=== PATIENT | male | born 1935 | race Caucasian/White ===

== ENCOUNTER 2020-05-16 07:58 | Outpatient (CLI) | payer MEDICARE, SELFPAY ==
--- NOTE | ~2020-05-16 | NM_ITS ---
EXAMINATION: NM hepatobiliary wo pharm DATE: 05/16/2020 13:10 CDT INDICATION: Abdominal pain TECHNIQUE: 4.5 millicuries Choletec was administered intravenously. Scintigraphic images of the abdo men were obtained for one hour. As the gallbladder was not seen at one hour, four hour delayed image s were obtained. Gallbladder ejection fraction could not be calculated by the technologist since the gallbladder was not seen by a one hour and cholecystokinin was not administered. FINDINGS: There is homogeneous tracer uptake by the liver. No radiotracer is identified in the common duct or small bowel by one hour. As the gallbladder was not seen by one hour and therefore cholecyst okinin was not administered, the gallbladder ejection fraction could not be calculated. There is visu alization of the gallbladder and small bowel at 4 hours. IMPRESSION: 1. Delayed visualization of the gallbladder at four hours after initial radiotracer administration, consistent with chronic cholecystitis. Correlate with patient's symptoms. 2. As the gallbladder was not seen by one hour and therefore cholecystokinin was not administered, t he gallbladder ejection fraction could not be calculated. Reviewed, dictated and finalized at location B. IMPRESSION: 1. Delayed visualization of the gallbladder at four hours after initial radiot racer administration, consistent with chronic cholecystitis. Correlate with pa tient's symptoms. 2. As the gallbladder was not seen by one hour and therefore cholecystokinin w as not administered, the gallbladder ejection fraction could not be calculated.
== END 2020-05-16 07:59 | disposition home or self-care (01) ==
LOC: ANHIMG 08:11
PROVIDERS: PCP Family Medicine; Visit Provider Family Medicine
DX: K21.9 Gastro-esophageal reflux disease without esophagitis (principal); R10.9 Unspecified abdominal pain
CPT/HCPCS: 78226; A9537

== ENCOUNTER 2020-05-31 01:05 | Outpatient (CLI) | payer MEDICARE, SELFPAY ==
[2020-05-31 18:04] LABS: SARS-CoV-2 RNA PCR Negative
== END 2020-05-31 01:06 | disposition home or self-care (01) ==
LOC: ANHCOVIDDT 01:05
PROVIDERS: PCP Family Medicine; Visit Provider Surgery
DX: Z01.812 Encounter for preprocedural laboratory examination (principal); Z20.828 Contact with and (suspected) exposure to other viral communicable diseases
CPT/HCPCS: 87635; C9803; U0003

== ENCOUNTER 2020-06-04 01:53 | Day surgery (SDC) | payer MEDICARE, SELFPAY ==
[2020-05-29 14:18] VITALS: BMI 26.4
--- NOTE | 2020-06-03 13:25 | WPDANESEPPF ---
Anes - Initial Pre Proc Eval Procedure: Operation Date: 06/04/20 10:30 Proposed Procedures p Laparoscopic Cholecystectomy - Lion Espinosa MD Date/Time: 06/03/20 13:25 Surgeon: Lion Espinosa MD Pre Op Diagnosis: Chronic Cholelithiasis Patient Data Age: 84 Gender: M Height: 1.65 m Weight: 72 kg Allergies Allergy/AdvReac Type Severity Reaction Status Date / Time Penicillins Allergy Mild Unknown Verified 06/04/20 07:45 Home Medications Medication Instructions Recorded Confirmed Type aspirin 81 mg tablet,delayed 81 mg PO DAILY 05/19/20 05/29/20 History release canagliflozin 100 mg tablet 100 mg PO DAILY 05/19/20 05/29/20 History coenzyme Q10 10 mg capsule 10 mg PO ONCE 05/19/20 05/29/20 History esomeprazole magnesium 20 mg 20 mg PO DAILY 05/19/20 05/29/20 History capsule,delayed release ezetimibe 10 mg-simvastatin 20 mg 1 tablet PO DAILY 05/19/20 05/29/20 History tablet glipizide 10 mg tablet 10 mg PO DAILY 05/19/20 05/29/20 History multivitamin,ku-rstu-hqdhbjyl 1 tablet PO DAILY 05/19/20 05/29/20 History oxybutynin chloride 5 mg tablet 10 mg PO DAILY 05/19/20 05/29/20 History quinapril 20 mg tablet 20 mg PO DAILY 05/19/20 05/29/20 History acetaminophen 325 mg PO TID PRN 05/29/20 05/29/20 History ascorbic acid (vitamin C) [Vitamin 1 g PO DAILY 05/29/20 05/29/20 History C] cyanocobalamin (vitamin B-12) 500 mcg PO DAILY 05/29/20 05/29/20 History ergocalciferol (vitamin D2) 1,250 mcg PO WEEKLY 05/29/20 05/29/20 History [Vitamin D2] insulin glargine [Lantus U-100 15 unit SUBCUT DAILY 05/29/20 05/29/20 History Insulin] metformin [Glucophage] 1,000 mg PO BID 05/29/20 05/29/20 History ECG: sr, lad, no acute st/tw changes Patient hx anesthesia problems: none Family hx anesthesia problems: none PMFSH Past Medical History Medical History (Updated 06/04/20 @ 08:44 by Jaron Bowen MD) CHF (congestive heart failure) diastolic Dementia Diabetes High cholesterol History of skin cancer Hypertension Family History Family History Father , age 84 Cerebrovascular accident Diabetes mellitus Mother , age 82 Breast cancer Diabetes mellitus Heart disease Hypertension Gallbladder problem Social History Social History (Updated 05/22/20 @ 09:12 by Zari Dorsey CMA) Alcohol intake: never Living arrangements: jail Additional living arrangements comments: [place] Final PreProcedure Day of Procedure 06/03/20 13:25 Patient weight: overweight Heart: regular rate and rhythm Lungs: clear to auscultation and normal air movement Airway: Mallampati scale class II Neurological: alert and oriented Last oral intake: >/= 8 hours ASA classification: IV Emergent: no Anesthetic plan: proceed Anesthesia type and monitoring: general ETT Informed Consent: The patient's anesthetic plan and its attendant risks and benefits were discussed with the patient/family/POA. Questions were solicited and answers provided to the satisfaction of the patient/family/POA.
[2020-06-04] VITALS (10 sets, daily range): BP systolic 100–117; BP diastolic 47–66; PULSE 96–104; RESP 12–16; TEMP 35.5–36.1; O2SAT 97–100
--- NOTE | 2020-06-04 07:15 | WPDHPUPDATE1 ---
History and Physical Update Update Date/Time: 06/04/20 07:15 History and Physical has been reviewed, including an updated exam of the patient. There are NO changes in the patient's condition. Risks, benefits, and alternatives have been discussed and questions answered. Patient agrees to proceed with procedure.
--- NOTE | 2020-06-04 07:58 | ECG_ITS ---
Measurements Intervals [place] Rate: 95 P: 16 CT: 176 QRS: -38 QRSD: 84 T: 19 QT: 342 QTc: 430 Interpretive Statements SINUS RHYTHM ATRIAL AND VENTRICULAR PREMATURE COMPLEXES LEFT AXIS DEVIATION CANNOT RULE OUT SEPTAL INFARCT, AGE INDETERMINATE CONSIDER INFERIOR INFARCT, AGE INDETERMINATE ABNORMAL ECG Electronically Signed On 06-04-2020 8:48:58 FUNERAL COUNSELOR by Ashu Gonzalez D.O.
[2020-06-04 08:33] LABS: Glucose Point of Care 140 (65-105)
[2020-06-04] MEDS: LACTATED RINGERS 1,000 ML 30 ML IV CONT ×2 (08:38→11:08)
[2020-06-04] MEDS: ACETAMINOPHEN 500 MG TABLET 1000 MG PO (08:40)
[2020-06-04] MEDS: KETOROLAC 15 MG/ML VIAL (*BKC) IV PUSH (08:40)
[2020-06-04 08:45] LABS: Alanine Aminotransferase 121 U/L (4-50); Albumin Level 3.7 g/dL (3.5-5.1); Alkaline Phosphatase 1140 U/L (38-126); Amylase 48 U/L (30-110); Aspartate Amino Transferase 129 U/L (17-59); Bilirubin Direct 1.1 mg/dL (0-0.3); Lipase 32 U/L (23-300)
[2020-06-04] MEDS: CLINDAMYCIN 900 MG/D5W 50 ML 900 MG/50 ML PIGGYBACK 50 MG IVPB (09:28)
[2020-06-04] MEDS: HEMOSTATIC MATRIX (SURGIFLO with THROMBIN) KIT 1 KIT XX (10:21)
[2020-06-04 11:13] LABS: Glucose Point of Care 172 (65-105)
--- NOTE | 2020-06-04 11:20 | PM.PROC ---
Procedure Note - Detailed Date of procedure: 06/04/20 Pre-op diagnosis: Chronic cholecystitis, cholelithiasis Chronic cholecystitis with cholelithiasis Post-op diagnosis: same Procedure performed: Laparoscopic cholecystectomy Description of procedure: The patient was taken to surgery and induced into general anesthesia. The abdomen was prepped and draped. Trocars were placed in the usual fashion using 0.5% Marcaine with epinephrine and applied Medical optical trocars. A 5 millimeter camera was used. The gallbladder was decompressed with a laparoscopic aspirator. The bile was very thick and dark green. It did not suction well with the laparoscopic aspirator. I inserted the suction and this decompressed the gallbladder nicely. The cholecystotomy was closed with a Vicryl endo-loop. The gallbladder was retracted anterosuperiorly. Adhesions to the gallbladder were taken down so that the cholecystohepatic triangle was exposed. There was fatty change of the liver which did not allow very much retraction of the gallbladder. Traction was placed on the infundibulum. I still could not visualize the cholecysto hepatic triangle very well. A 5th trocar was placed in the left mid abdomen. This was another 5 mm port. we used this to retract the omentum, transverse colon, and duodenum posteriorly so that the triangle of Calot could be visualized. The cystic duct and cystic artery were dissected out very clearly. The gallbladder was dissected off the liver at its lower 3rd. Critical view was achieved. We securely clipped and divided the cystic duct and cystic artery. The gallbladder was then further retracted so that the peritoneal attachments to the liver could be divided. At approximately the mcc point to the fundus of the gallbladder, there was no plane between the gallbladder and the liver. With traction, the gallbladder pulled off the liver rather than allowing dissection between the 2. This left some raw liver surface. Unfortunately there was also a superficial vein in the liver that was bleeding as well. Once the gallbladder was freed entirely, it was placed in an Endo-Catch bag and retrieved through the 10 11 epigastric trocar site. The epigastric trocar was then replaced. We reviewed the right upper quadrant. The old blood was suctioned away and some cautery was used. I then used Surgiflo and coated the gallbladder fossa with this hemostatic agent. A Ray-Anne was placed in the abdomen and used to hold pressure. This relieved the oozing from the rest of the gallbladder fossa but there was still some from the area of this small superficial vein. Surgicel was then used and placed over this area. Pressure was held for a full 5 minutes. All looked much better. I then placed a 2nd piece of Surgicel over the gallbladder fossa to cover not only this area but the rest of the raw surface area of the gallbladder fossa. Pressure was again held for nearly 5 minutes. When the Ray-Anne was removed, the gallbladder fossa looked very good with no evidence of bleeding at all. The Surgicel was quite adherent to the liver. I then irrigated and suction the right upper quadrant repeatedly. Nearly 3 L of saline irrigation was used. All looked good with no evidence of bleeding or bile leakage. We evacuated CO2 and removed the trocar sleeves. Skin wounds were closed with subcuticular 4 O Monocryl skin suture. The wounds were dressed with Exofin surgical adhesive. Patient was awakened and taken to recovery in good condition. Sponge and needle counts were correct x2. Anesthesia: GETA and local (0.5% Marcaine with epinephrine) Surgeon: Lion Espinosa MD Electric Clock Mechanic: Nissa WALDROP Estimated blood loss (mL): 100 Drains: No Packing: No Pathology: yes (Gallbladder) Complications: None Condition: stable Disposition: PACU Findings: Chronic inflammation, several gallstones noted. No biliary ductal dilatation, fatty change of the liver as described.
== END 2020-06-04 13:30 | disposition home or self-care (01) ==
PROVIDERS: PCP Family Medicine; Visit Provider Surgery
PROC: 0FT44ZZ Resection of Gallbladder, Percutaneous Endoscopic Approach (ICD-10-PCS; CPT 47562; principal; 2020-06-04 09:30)
DX: K80.10 Calculus of gallbladder with chronic cholecystitis without obstruction (principal); I11.0 Hypertensive heart disease with heart failure; I50.30 Unspecified diastolic (congestive) heart failure; E11.9 Type 2 diabetes mellitus without complications; Z79.4 Long term (current) use of insulin; E78.00 Pure hypercholesterolemia, unspecified; F03.90 Unspecified dementia, unspecified severity, without behavioral disturbance, psychotic disturbance, mood disturbance, and anxiety; Z85.828 Personal history of other malignant neoplasm of skin; Z88.0 Allergy status to penicillin; Z79.52 Long term (current) use of systemic steroids; Z79.899 Other long term (current) drug therapy
CPT/HCPCS: 47562; 36415; 80076; 82150; 83690; 86850; 86900; 86901; 88304; 93005; A9270; C1713; J1885; J2405; J2704; J2710; J3010; J7030; J7120

== ENCOUNTER 2020-06-12 17:28 | Inpatient (IN) | payer MEDICARE, SELFPAY ==
--- NOTE | ~2020-06-12 | XR_ITS ---
XR chest 1V portable DATE: 06/19/2020 11:14 INDICATION: Leukocytosis TECHNIQUE: Portable AP chest on 06/19/2020 at 1114 hours COMPARISON: None FINDINGS: Normal heart size. Aortic arch calcification. No hilar or mediastinal enlargement. No pulmonary infiltrate or consolidation, pleural effusion or pulmonary vascular congestion or pneumo thorax. Diffuse osteopenia. Surgical clips, right upper quadrant, consistent with cholecystectomy. IMPRESSION: No active cardiopulmonary disease Aortic atherosclerosis Diffuse osteopenia Status post cholecystectomy Reviewed, dictated and finalized at location A. FINISH OPERATOR
--- NOTE | ~2020-06-12 | US_ITS ---
EXAMINATION: US renal BI EXAM DATE: 06/16/2020 09:21 INDICATION: Acute kidney insufficiency. TECHNIQUE: Multiple grayscale and Doppler images of the kidneys were obtained (by a technologist who performed the scan) and subsequently reviewed. There is no prior study for comparison. FINDINGS: Right kidney: There is normal contour and echogenicity. It measures 10.1 x 6.0 x 5.2 centimeters. T here are no focal renal lesions identified. There is no hydronephrosis. Left kidney: There is normal contour and echogenicity. It measures 10.0 x 5.2 x 4.7 centimeters. Th ere are no focal renal lesions identified. There is no hydronephrosis. Mild bladder wall trabeculation without focal masslike thickening. IMPRESSION: 1. Sonographically unremarkable kidneys. 2. Mild bladder wall trabeculation. Reviewed, dictated and finalized at location B. ECTOR MISSILE
--- NOTE | ~2020-06-12 | CT_ITS ---
EXAMINATION: CT abdomen pelvis wo con DATE: 06/12/2020 21:21 INDICATION: Jaundice post recent cholecystectomy. COVID positive. TECHNIQUE: Computed tomography (CT) of the abdomen and pelvis was performed with 100 mL Omnipaque-350 intravenous contrast. Automated exposure control and iterative reconstruction technique were employe d. The dose-length product was 887.14 mGy-cm. COMPARISON: None FINDINGS: Scattered mild peripheral opacities and smooth septal line thickening in the bilateral lower lungs. N o pleural effusion. Calcified left lower lobe nodule along with scattered splenic calcified consisten t with old granulomatous disease. Mild cardiomegaly. Atherosclerotic coronary artery calcifications. Aortic valve and mitral annular calcification. No pericardial effusion. Cholecystectomy clips at the pavan hepatis with fluid collection with trace amount of gas at the gallbladder fossa conforming to t he configuration of the gallbladder which is concerning for biloma. No definitive intra or extra hepa tic biliary ductal dilation. Liver is otherwise unremarkable. Pancreas, bilateral adrenal glands and kidneys are normal. Normal retrocecal appendix. No abnormal bowel wall thickening or obstruction. Christopher dder is distended but appears otherwise normal. Mild prostatomegaly. Mild portacaval and periportal l ymphadenopathy which may be reactive. There is calcified atherosclerosis of the aorta and many of the other arteries. Subacute appearing T11 compression fracture with mild anterior vertebral body height loss and some residual lucency along the fracture plane which underlies anterior half of the superio r endplate. Chronic mild anterior wedging at T12. Severe lumbar spondylosis. IMPRESSION: 1. Loculated fluid collection at the gallbladder fossa post reported cholecystectomy which is concern ing for biloma. Differential would include hematoma/seroma or abscess. 2. Bibasilar peripheral predominant airspace opacities also in smooth septal line thickening. Differe ntial would include pulmonary edema, pneumonia, atelectasis or some combination thereof. 3. Likely reactive mild periportal and portacaval lymphadenopathy. 4. Subacute appearing mild T11 compression fracture. Reviewed, dictated and finalized at [facility]. L[facility] PILOT IMPRESSION: 1. Loculated fluid collection at the gallbladder fossa post reported cholecyste ctomy which is concerning for biloma. Differential would include hematoma/serom a or abscess. 2. Bibasilar peripheral predominant airspace opacities also in smooth septal li ne thickening. Differential would include pulmonary edema, pneumonia, atelectas is or some combination thereof. 3. Likely reactive mild periportal and portacaval lymphadenopathy. 4. Subacute appearing mild T11 compression fracture.
--- NOTE | ~2020-06-12 | NM_ITS ---
EXAMINATION: NM hepatobiliary wo pharm EXAM DATE: 06/13/2020 15:02 INDICATION: evaluate for bile leak s/p lap michael 06/04/20. TECHNIQUE: 5.3 mCi Tc-99m mebrofenin (Choletec) was administered intravenously. Scintigraphic images of the abdomen were obtained for one hour. A 6 hour delayed image was then also obtained. Correlatio n is made to CT abdomen from 06/12/2020. The images are available for review under the ERCP accession same date. FINDINGS: There is delayed clearance of radiotracer from the blood pool. There is homogeneous tracer uptake by the liver. At 1 hours time there is no excretion into the common bile duct or small bowel. Patient then went for an ERCP and retrogradely contrast was able to be injected beyond a suspected mi d common bile duct narrowing. On the 6 hour delayed image obtained after the ERCP, abundant small bow el activity demonstrated. No activity within the gallbladder fossa or within the pelvis. No evidence of bile leak. IMPRESSION: Delayed blood pool phase could have been from common bile duct obstruction, which subsequ ently resolved following ERCP performed between initial and delayed imaging. No evidence of bile leak . Reviewed, dictated and finalized at location A. ING MACHINE OPERATOR IMPRESSION: Delayed blood pool phase could have been from common bile duct obst ruction, which subsequently resolved following ERCP performed between initial a nd delayed imaging. No evidence of bile leak.
--- NOTE | ~2020-06-12 | XR_ITS ---
EXAMINATION: XR ERCP EXAM DATE: 06/13/2020 13:15 INDICATION: Papillary stenosis, stones. Evaluate for bile leak. Jaundice. Postoperative fluid collect ion in the gallbladder resection bed. TECHNIQUE: Fluoroscopy used during ERCP. Dose reduction digital pulsed fluoroscopy was used at 4 fra mes per second with DAP 0.46 Gycm2. Correlation made with CT abdomen 06/12/2020 FINDINGS: The ampulla was cannulated and injected. Proximal aspect of the pancreatic duct opacified w as unremarkable. The common bile probably about 8 mm in caliber proximally, and then tapers to about 2 or 3 mm in its mid aspect and then dilates to about 4 mm distally. The ERCP scope is overlying this region, so difficult to evaluate but there is potentially inflammation or mass causing a mid common bile duct narrowing or stricture. There is mild intrahepatic biliary duct dilation. No common bile d uct obstruction or intraluminal filling defect. No contrast extravasation. Cholecystectomy clips. IMPRESSION: Narrowing of the mid common bile duct with mild dilation proximal to this, could be from inflammation or possibly mass. No obstruction or intraluminal filling defects. No extravasation. Reviewed, dictated and finalized at location A. EHOLD APPLIANCES SERVICE TECHNICIAN IMPRESSION: Narrowing of the mid common bile duct with mild dilation proximal t o this, could be from inflammation or possibly mass. No obstruction or intralum inal filling defects. No extravasation.
[2020-06-12 17:41] VITALS: BP 109/61; PULSE 50; RESP 15; TEMP 37.1; O2SAT 97
--- NOTE | 2020-06-12 17:43 | ED.RECABL ---
HPI - Recheck/Abnormal Lab/Rx General Chief Complaint: Recheck/Abnormal Lab/Rx <Jay Philippe MD - Last Filed: 06/15/20 16:02> Stated Complaint: post surgery complications <Jay Philippe MD - Last Filed: 06/15/20 16:02> Time Seen by Provider: 06/12/20 17:31 <Jay Philippe MD - Last Filed: 06/15/20 16:02> History of Present Illness HPI narrative: 85 yo male with h/o cholecystectomy presents to the ED for suspected choledocholithiasis. He had a cholecystectomy on 06/04 since that time he has had increasing jaundice. Outpatient labs reportedly show elevated liver enzymes and alk phos. History severly limited by dementia. custodial indicated that he tested positive for COVID-19 on Tuesday. <Jay Philippe MD - Last Filed: 06/15/20 16:02> Related Data Home Medications: Home Medications Medication Instructions Recorded Confirmed aspirin 81 mg tablet,delayed 81 mg PO DAILY 05/19/20 06/13/20 release canagliflozin 100 mg tablet 100 mg PO DAILY 05/19/20 06/13/20 coenzyme Q10 10 mg capsule 10 mg PO DAILY 05/19/20 06/13/20 esomeprazole magnesium 20 mg 20 mg PO DAILY 05/19/20 06/13/20 capsule,delayed release ezetimibe 10 mg-simvastatin 20 mg 1 tablet PO DAILY 05/19/20 06/13/20 tablet glipizide 10 mg tablet 10 mg PO BID 05/19/20 06/13/20 multivitamin,mq-tqxg-bofrujpr 1 tablet PO DAILY 05/19/20 06/13/20 oxybutynin chloride 5 mg tablet 10 mg PO DAILY 05/19/20 06/13/20 quinapril 20 mg tablet 20 mg PO DAILY 05/19/20 06/13/20 acetaminophen 325 mg PO TID PRN 05/29/20 06/13/20 ascorbic acid (vitamin C) [Vitamin 1 g PO DAILY 05/29/20 06/13/20 C] cyanocobalamin (vitamin B-12) 500 mcg PO DAILY 05/29/20 06/13/20 ergocalciferol (vitamin D2) 1,250 mcg PO WEEKLY 05/29/20 06/13/20 [Vitamin D2] metformin [Glucophage] 1,000 mg PO BID 05/29/20 06/13/20 <Jay Philippe MD - Last Filed: 06/15/20 16:02> Allergies/Adverse Reactions: Allergies Allergy/AdvReac Type Severity Reaction Status Date / Time Penicillins Allergy Mild Unknown Verified 06/13/20 12:11 <Jay Philippe MD - Last Filed: 06/15/20 16:02> Review of Systems Review of Systems: ROS unobtainable: Yes unobtainable due to mental status <Jay Philippe MD - Last Filed: 06/15/20 16:02> PMFSH Past Medical History Medical History: Medical History CHF (congestive heart failure) diastolic Dementia Diabetes High cholesterol History of skin cancer Hypertension <Jay Philippe MD - Last Filed: 06/15/20 16:02> Surgical History Surgical History: Surgical History Hx of cholecystectomy <Jay Philippe MD - Last Filed: 06/15/20 16:02> Family History Family History: Family History Father , age 84 Cerebrovascular accident Diabetes mellitus Mother , age 82 Breast cancer Diabetes mellitus Heart disease Hypertension Gallbladder problem <Jay Philippe MD - Last Filed: 06/15/20 16:02> Social History Social History: Social History Smoking status: Never smoker Alcohol intake: former Substance use: never Additional living arrangements comments: [place] Gender identity (if verbalized by the patient): Male Spiritual care concerns: No <Jay Philippe MD - Last Filed: 06/15/20 16:02> Exam Const: General: no acute distress and alert <Jay Philippe MD - Last Filed: 06/15/20 16:02> Nutritional Appearance: well nourished <Jay Philippe MD - Last Filed: 06/15/20 16:02> HENMT: Head: normal to inspection <Jay Philippe MD - Last Filed: 06/15/20 16:02> Eyes: Conjunctivae: conjunctival abnormality bilateral conjunctival icterus <Jay Philippe MD - Last Filed: 06/15/20 16:02>
[2020-06-12 17:59] VITALS: O2SAT 99
--- NOTE | 2020-06-12 18:37 | PC.NURSE ---
ok to call daughter jayden [phone] any time of day or night with info. she is pt's poa. he has dementia
[2020-06-12 18:41] LABS: Basophils Absolute Auto 0.1 K/mm3 (0.0-0.1); Basophils Percent Auto 0.9 % (0.2-1.2); Eosinophils Absolute Auto 0.3 K/mm3 (0-0.3); Eosinophils Percent Auto 1.8 % (0-4.4); Hematocrit 30.7 % (42.0-52.0); Hemoglobin 10.6 g/dL (14.0-18.0); Immature Granulocyte Absolute 0.23 K/mm3 (0.00-0.031); Immature Granulocyte Percent A 1.7 % (0-0.5); Lymphocytes Absolute Auto 1.56 K/mm3 (0.9-3.2); Lymphocytes Percent Auto 11.4 % (18.3-44.2); Mean Corpuscular HGB Conc 34.5 g/dl (32-36); Mean Corpuscular Hemoglobin 29.3 pg (26-34); Mean Corpuscular Volume 84.8 fl (80-100); Mean Platelet Volume 10.4 fl (7.4-10.4); Monocytes Absolute Auto 0.9 K/mm3 (0.1-0.6); Monocytes Percent Auto 6.9 % (2.6-8.5); Neutrophils Absolute Auto 10.6 K/mm3 (1.3-6.7); Neutrophils Percent Auto 77.3 % (45.5-73.1); Platelet Count Result 317 k/mm3 (150-375); Red Blood Count 3.62 M/mm3 (4.6-6.20); Red Cell Distribution Width 15.9 % (11.5-14.5); White Blood Count 13.7 K/mm3 (4.5-10.0)
[2020-06-12 19:42] VITALS: BP 100/64; PULSE 108; RESP 13; O2SAT 99
[2020-06-12 19:55] LABS: INR 1.3; Prothrombin Time 16.3 Seconds (11.1-14.7)
[2020-06-12 19:56] LABS: Alanine Aminotransferase 238 U/L (4-50); Albumin Level 3.5 g/dL (3.5-5.1); Alkaline Phosphatase 1332 U/L (38-126); Anion Gap 14 mmol/L (8-16); Aspartate Amino Transferase 346 U/L (17-59); Bilirubin Direct 2.6 mg/dL (0-0.3); Blood Urea Nitrogen 47 mg/dL (9-20); Carbon Dioxide 17 mmol/L (22-30); Chloride 106 mmol/L (98-107); Estimated CRCL calculation 15 ml/min; Estimated Glomerular Filt Rate 17; Glucose 43 mg/dL (75-110); Lipase 34 U/L (23-300); Partial Thromboplastin Time 33.1 SECONDS (22.3-36.8); Potassium 3.7 mmol/L (3.4-5.0); Sodium 137 mmol/L (137-145)
[2020-06-12] MEDS: SODIUM CHLORIDE 0.9% IV 1,000 ML 999 ML IV CONT (20:38)
[2020-06-12 20:40] VITALS: BP 113/69; PULSE 98; RESP 16; O2SAT 99
[2020-06-12 20:51] LABS: Glucose Point of Care 34 (65-105)
[2020-06-12] MEDS: DEXTROSE 50% 25 GM/50 ML SYRINGE IV PUSH ×2 (20:55→20:56)
--- NOTE | 2020-06-12 21:45 | PM.CNGS ---
Assessment and Plan Assessment and plan (1) Jaundice: Code(s): R17 - Unspecified jaundice Status: Acute Assessment and Plan: will start c CT, will need further imaging of biliary tree to r/o stones vs leak, will get GI consultation, will need abx, NPO for now (2) COVID-19: Code(s): U07.1 - COVID-19 Status: Acute Assessment and Plan: supportive care (3) CHF (congestive heart failure): Code(s): I50.9 - Heart failure, unspecified Status: Acute Assessment and Plan: mgmt per primary (4) Diabetes: Code(s): E11.9 - Type 2 diabetes mellitus without complications Status: Acute Assessment and Plan: mgmt per primary (5) Hypertension: Code(s): I10 - Essential (primary) hypertension Status: Acute Assessment and Plan: mgmt per primary History of Present Illness Consult details Consult date: 06/12/20 Reason for consult: other (jaundice) Requesting physician: Jay Philippe MD Narrative: Pt is a 85 y/o M c multiple med issues presenting c jaundice. Pt had cholecystectomy on 06/04. Pt reports he has not really had any abdominal pain but noticed worsening jaundice. Pt reports he has had poor appetite since surgery. Pt c mild bloating, nausea. Pt is a poor historian. Review of Systems Review of Systems: ROS unobtainable: Yes unobtainable due to medical condition and unobtainable due to mental status PMFSH Past Medical History Medical History CHF (congestive heart failure) diastolic Dementia Diabetes High cholesterol History of skin cancer Hypertension Surgical History Surgical History Hx of cholecystectomy Family History Family History Father , age 84 Cerebrovascular accident Diabetes mellitus Mother , age 82 Breast cancer Diabetes mellitus Heart disease Hypertension Gallbladder problem Social History Social History Alcohol intake: never Additional living arrangements comments: [place] Gender identity (if verbalized by the patient): Male Meds Home Medications and Allergies Home Medications Medication Instructions Recorded Confirmed Type aspirin 81 mg tablet,delayed 81 mg PO DAILY 05/19/20 05/29/20 History release canagliflozin 100 mg tablet 100 mg PO DAILY 05/19/20 05/29/20 History coenzyme Q10 10 mg capsule 10 mg PO ONCE 05/19/20 05/29/20 History esomeprazole magnesium 20 mg 20 mg PO DAILY 05/19/20 05/29/20 History capsule,delayed release ezetimibe 10 mg-simvastatin 20 mg 1 tablet PO DAILY 05/19/20 05/29/20 History tablet glipizide 10 mg tablet 10 mg PO DAILY 05/19/20 05/29/20 History multivitamin,su-oggj-sfrhhxdp 1 tablet PO DAILY 05/19/20 05/29/20 History oxybutynin chloride 5 mg tablet 10 mg PO DAILY 05/19/20 05/29/20 History quinapril 20 mg tablet 20 mg PO DAILY 05/19/20 05/29/20 History Lantus U-100 Insulin 15 unit SUBCUT DAILY 05/29/20 05/29/20 History acetaminophen 325 mg PO TID PRN 05/29/20 05/29/20 History ascorbic acid (vitamin C) [Vitamin 1 g PO DAILY 05/29/20 05/29/20 History C] cyanocobalamin (vitamin B-12) 500 mcg PO DAILY 05/29/20 05/29/20 History ergocalciferol (vitamin D2) 1,250 mcg PO WEEKLY 05/29/20 05/29/20 History [Vitamin D2] metformin [Glucophage] 1,000 mg PO BID 05/29/20 05/29/20 History ibuprofen 600 mg PO Q6H PRN #14 tablet 06/04/20 Rx Allergies Allergy/AdvReac Type Severity Reaction Status Date / Time Penicillins Allergy Mild Unknown Verified 06/04/20 07:45 Vital Signs Vital Signs - 24 hr 06/12/20 17:41 06/12/20 17:59 06/12/20 19:42 Temperature 37.1 C Pulse Rate 50 L 108 H Respiratory Rate 15 13 Blood Pressure 109/61 100/64 Pulse Oximetry 97 99 99 06/12/20 20:40 Temperature
[2020-06-12 22:08] LABS: Glucose Point of Care 210 (65-105)
--- NOTE | 2020-06-12 22:40 | PM.IMHP ---
H&P: HPI History of Present Illness Date/Time: 06/12/20 22:40 Chief complaint: acute renal failure/biloma/jaundice Narrative: This is an unfortunate 85-year-old diabetic male whom we have been asked to admit to the hospital by the general surgery service for a likely surgical complication of a bile leak. the patient just underwent a laparoscopic cholecystectomy 8 days ago and since then he has had increased jaundice. The patient denies any significant pain or discomfort but does report decreased p.o. intake. He has had elevated liver enzymes. The patient is known to have tested positive for COVID-19 approximately 3 days ago. He was evaluated in the emergency room this evening for his worsening jaundice and CT abdomen pelvis demonstrated a loculated fluid collection at the gallbladder fossa post reported cholecystectomy which is concerning for biloma. ER provider has consulted General surgery Dr. Beckman who has asked that we admit the patient for them because the patient appears to be in acute renal failure. On my encounter with the patient tonight he denies any fevers, chills, shortness of breath, cough, chest pain, nausea, vomiting, abdominal pain, dysuria, hematuria, diarrhea, or rectal bleeding. ER provider has consulted gastroenterology for possible ERCP. Review of Systems Review of Systems: All systems reviewed & are unremarkable except as noted in HPI and below PMFSH Past Medical History Medical History CHF (congestive heart failure) diastolic Dementia Diabetes High cholesterol History of skin cancer Hypertension Surgical History Surgical History Hx of cholecystectomy Family History Family History Father , age 84 Cerebrovascular accident Diabetes mellitus Mother , age 82 Breast cancer Diabetes mellitus Heart disease Hypertension Gallbladder problem Social History Social History Smoking status: Never smoker Alcohol intake: former Substance use: never Additional living arrangements comments: [place] Gender identity (if verbalized by the patient): Male Spiritual care concerns: No Meds Home Medications and Allergies Home Medications Medication Instructions Recorded Confirmed Type aspirin 81 mg tablet,delayed 81 mg PO DAILY 05/19/20 06/13/20 History release canagliflozin 100 mg tablet 100 mg PO DAILY 05/19/20 06/13/20 History coenzyme Q10 10 mg capsule 10 mg PO DAILY 05/19/20 06/13/20 History esomeprazole magnesium 20 mg 20 mg PO DAILY 05/19/20 06/13/20 History capsule,delayed release ezetimibe 10 mg-simvastatin 20 mg 1 tablet PO DAILY 05/19/20 06/13/20 History tablet glipizide 10 mg tablet 10 mg PO BID 05/19/20 06/13/20 History multivitamin,jr-phai-nkixnxvw 1 tablet PO DAILY 05/19/20 06/13/20 History oxybutynin chloride 5 mg tablet 10 mg PO DAILY 05/19/20 06/13/20 History quinapril 20 mg tablet 20 mg PO DAILY 05/19/20 06/13/20 History acetaminophen 325 mg PO TID PRN 05/29/20 06/13/20 History ascorbic acid (vitamin C) [Vitamin 1 g PO DAILY 05/29/20 06/13/20 History C] cyanocobalamin (vitamin B-12) 500 mcg PO DAILY 05/29/20 06/13/20 History ergocalciferol (vitamin D2) 1,250 mcg PO WEEKLY 05/29/20 06/13/20 History [Vitamin D2] metformin [Glucophage] 1,000 mg PO BID 05/29/20 06/13/20 History ibuprofen 600 mg PO Q6H PRN #14 tablet 06/04/20 06/13/20 Rx Allergies Allergy/AdvReac Type Severity Reaction Status Date / Time Penicillins Allergy Mild Unknown Verified 06/13/20 00:35 Vital Signs Vital Signs - 24 hr 06/12/20 17:41 06/12/20 17:59 06/12/20 19:42 Temperature 37.1 C Pulse Rate 50 L 108 H Respiratory Rate 15 13 Blood Pressure 109/61 100/64 Pulse Oximetry 97 99 99 06/12/20 20:40 Temperature Puls
[2020-06-12 22:42] VITALS: BP 92/64; PULSE 96; RESP 16; O2SAT 99
[2020-06-12] MEDS: metroNIDAZOLE 500 MG/ISO 100ML 500 MG/100 ML BAG 100 MG IVPB (22:49)
[2020-06-13] VITALS (16 sets, daily range): BP systolic 107–152; BP diastolic 58–82; PULSE 70–106; RESP 16–20; TEMP 36.3–36.7; O2SAT 93–100
[2020-06-13] MEDS: SODIUM CHLORIDE 0.9% IV 1,000 ML 100 ML IV CONT ×2 (00:07→15:29)
--- NOTE | 2020-06-13 00:36 | ADMGEN ---
This patient, Souleymane Norris, was admitted to [facility] Surg Room 332-01. Patient/family oriented to hospital policies and general routines including ID bracelet, bed and alarms, visiting hours, pain management, procedures, bathroom and other care routines, personal items, smoking policy, room service/diet, and visiting hours. Information on how to activate the Rapid Response Team has been discussed. Patient/Family are encouraged to report perceived risks to care and to ask questions if they do not understand what they are told or what they should do.
[2020-06-13] MEDS: metroNIDAZOLE 500 MG/ISO 100ML 500 MG/100 ML BAG 100 MG IVPB ×4 (05:54→23:36)
--- NOTE | 2020-06-13 09:32 | WPDGICN ---
Assessment and Plan Assessment and plan (1) Biloma: Code(s): K66.8 - Other specified disorders of peritoneum Status: Acute Assessment and Plan: CT scan in the ER suggest a biloma. Bile leak is suspected. Plan is for ERCP to assess and possible placed stent to decompress the biliary tree. (2) Jaundice: Code(s): R17 - Unspecified jaundice Status: Acute Assessment and Plan: Elevated LFTs noted at the time of cholecystectomy 1-1/2 weeks ago has worsened to some degree. Etiology of this is unclear. Plan is for ERCP to assess more thoroughly. Laboratory studies for hepatitis 6 will be obtained as well. (3) COVID-19: Code(s): U07.1 - COVID-19 Status: Acute (4) CYNDI (acute kidney injury): Code(s): N17.9 - Acute kidney failure, unspecified Status: Acute (5) Dementia: Code(s): F03.90 - Unspecified dementia without behavioral disturbance Status: Acute (6) Chronic cholecystitis without calculus: Code(s): K81.1 - Chronic cholecystitis Status: Acute Assessment and Plan: Patient is status post cholecystectomy on June [address] Espinosa who will follow along with this. GI Consult Note Consult date/time: 06/13/20 09:32 HPI: Souleymane Norris is a 85 year old male I am asked to see at the request of the ER. Patient currently resident of a correction. He has a history of cholecystectomy on June 04, 2020. his LFTs were noted to be elevated at time of discharge. He had gallbladder sludge and no stones were identified. Apparently he did well at the correction. He was noted to have increase in his jaundice however. For this reason he recent back to the emergency room. He denies abdominal pain. There is no fever noted. He has had no bleeding. A CT scan in the emergency room suggested a biloma. There is now concern over possible bile leak. For this reason I have been consulted. Laboratory test in the ER also suggest renal insufficiency. He has recently been tested and found to be COVID positive 4 days ago in the correction. Patient himself is unable to add any useful information appears to have some dementia. Now well oriented to place but to person only. Review of Systems Review of Systems: ROS unobtainable: Yes unobtainable due to mental status PMFSH Past Medical History Medical History CHF (congestive heart failure) diastolic Dementia Diabetes High cholesterol History of skin cancer Hypertension Surgical History Surgical History Hx of cholecystectomy Family History Family History Father , age 84 Cerebrovascular accident Diabetes mellitus Mother , age 82 Breast cancer Diabetes mellitus Heart disease Hypertension Gallbladder problem Social History Social History Smoking status: Never smoker Alcohol intake: former Substance use: never Additional living arrangements comments: [place] Gender identity (if verbalized by the patient): Male Spiritual care concerns: No Meds Home Medications and Allergies Home Medications Medication Instructions Recorded Confirmed Type aspirin 81 mg tablet,delayed 81 mg PO DAILY 05/19/20 06/13/20 History release canagliflozin 100 mg tablet 100 mg PO DAILY 05/19/20 06/13/20 History coenzyme Q10 10 mg capsule 10 mg PO DAILY 05/19/20 06/13/20 History esomeprazole magnesium 20 mg 20 mg PO DAILY 05/19/20 06/13/20 History capsule,delayed release ezetimibe 10 mg-simvastatin 20 mg 1 tablet PO DAILY 05/19/20 06/13/20 History tablet glipizide 10 mg tablet 10 mg PO BID 05/19/20 06/13/20 History multivitamin,su-jmzv-uqhrnekl 1 tablet PO DAILY 05/19/20 06/13/20 History oxybutynin chloride 5 mg tablet 10 mg
--- NOTE | 2020-06-13 09:44 | PCRCNOTE ---
TX omitted /to0 close to next scheduled dose
--- NOTE | 2020-06-13 10:54 | PM.IMPN ---
Progress Note: A&P Assessment and Plan (1) Biloma: Code(s): K66.8 - Other specified disorders of peritoneum Status: Acute Assessment and Plan: The patient has been admitted to the medical-surgical floor. General surgery to manage post-surgical complication of bile leak. Continue general surgery recommendations. GI also consulted per ER provider/General Surgery. Appreciate recommendations; patient appears to be going for ERCP for further evaluation (2) Jaundice: Code(s): R17 - Unspecified jaundice Status: Acute Assessment and Plan: Likely secondary to bile leak. CMP shows improving LFTs and bili Monitor liver function test. (3) CYNDI (acute kidney injury): Code(s): N17.9 - Acute kidney failure, unspecified Status: Acute Assessment and Plan: Cr 3.50 on arrival; 2.80 today. Likely prerenal as patient having decreased PO intake recently. Continue IV fluid hydration. Monitor renal function. Avoid nephrotoxin agents. Renally dose medications. Monitor her urine output. Consider renal ultrasound for further eval Consider Nephrology consultation if renal function does not improve. (4) Hypoglycemia: Code(s): E16.2 - Hypoglycemia, unspecified Status: Acute Assessment and Plan: Known DM. Likely secondary to poor p.o. intake of food. Currently NPO for further testing Hypoglycemia protocol. Hold home hypoglycemic agents at this time and resume when appropriate. (5) Leukocytosis: Qualifiers: Leukocytosis type: unspecified Qualified Code(s): D72.829 - Elevated white blood cell count, unspecified Code(s): D72.829 - Elevated white blood cell count, unspecified Status: Acute Assessment and Plan: Likely secondary to surgery and recent COVID infection. Monitor CBCD. (6) COVID-19: Code(s): U07.1 - COVID-19 Status: Acute Assessment and Plan: Continue droplet isolation. Continue supportive care. P.r.n. bronchodilators ordered. (7) CHF (congestive heart failure): Qualifiers: Heart failure type: unspecified Heart failure chronicity: chronic Qualified Code(s): I50.9 - Heart failure, unspecified Code(s): I50.9 - Heart failure, unspecified Status: Acute Assessment and Plan: compensated. Monitor Is and Os, daily weights. Monitor closely with IV fluids (8) Diabetes: Code(s): E11.9 - Type 2 diabetes mellitus without complications Status: Acute Assessment and Plan: BGL 40 this morning; hypoglycemia protocol implemented. Home meds held at this moment Hold home medications for now Accuchecks ACHS when off NPO status, hypoglycemia protocol, correctional insulin, diabetic diet when off NPO status Subjective Date/time seen: 06/13/20 10:54 Interval history: Patient is a 85-year-old diabetic male with history of CHF, dementia, HTN, and HLD who is seen in follow up for a likely surgical complication of a bile leak, as well as CYNDI. Patient has no complaints for me at the moment. He is A&Ox3 but seems pleasantly confused at times, saying I'm sorry several times during visit, although does make several jokes during stay as well and is in good spirits. Denies subjective f/c/s, headaches, dizziness, lightheadedness, cp/palpitations, sob/cough, current n/v/d/c, current abd pain, dysuria, calf pain/swelling. Review of Systems Review of Systems: All systems reviewed & are unremarkable except as noted in HPI and below Exam Narrative: Exam Narrative: General: Patient resting supine in bed in no acute distress. graphic art technician and Nursing in
[2020-06-13 11:16] LABS: Alanine Aminotransferase 186 U/L (4-50); Alkaline Phosphatase 997 U/L (38-126); Anion Gap 14 mmol/L (8-16); Aspartate Amino Transferase 200 U/L (17-59); Bilirubin,Total 4.4 mg/dL (0.2-1.3); Blood Urea Nitrogen 42 mg/dL (9-20); Calcium 8.5 mg/dL (8.4-10.2); Carbon Dioxide 15 mmol/L (22-30); Chloride 110 mmol/L (98-107); Estimated CRCL calculation 18 ml/min; Estimated Glomerular Filt Rate 22; Glucose 40 mg/dL (75-110); Magnesium 1.5 mg/dL (1.6-2.3); Potassium 3.3 mmol/L (3.4-5.0); Sodium 139 mmol/L (137-145)
[2020-06-13 11:20] LABS: Basophils Absolute Auto 0.1 K/mm3 (0.0-0.1); Basophils Percent Auto 0.4 % (0.2-1.2); Eosinophils Percent Auto 0.4 % (0-4.4); Hematocrit 30.6 % (42.0-52.0); Hemoglobin 10.4 g/dL (14.0-18.0); Immature Granulocyte Percent A 1.8 % (0-0.5); Lymphocytes Absolute Auto 0.81 K/mm3 (0.9-3.2); Lymphocytes Percent Auto 7.2 % (18.3-44.2); Mean Corpuscular Hemoglobin 29.4 pg (26-34); Mean Corpuscular Volume 86.4 fl (80-100); Mean Platelet Volume 10.2 fl (7.4-10.4); Monocytes Absolute Auto 0.6 K/mm3 (0.1-0.6); Monocytes Percent Auto 5.3 % (2.6-8.5); Neutrophils Absolute Auto 9.6 K/mm3 (1.3-6.7); Neutrophils Percent Auto 84.9 % (45.5-73.1); Platelet Count Result 322 k/mm3 (150-375); Red Blood Count 3.54 M/mm3 (4.6-6.20); Red Cell Distribution Width 16.1 % (11.5-14.5); White Blood Count 11.3 K/mm3 (4.5-10.0)
[2020-06-13] MEDS: DEXTROSE 50% 25 GM/50 ML SYRINGE IV PUSH ×2 (11:24→21:15)
[2020-06-13 12:14] LABS: Glucose Point of Care 158 (65-105)
--- NOTE | 2020-06-13 12:18 | WPDANESEPPF ---
Anes - Initial Pre Proc Eval Procedure: Operation Date: 06/13/20 12:00 Proposed Procedures p Endoscopic Retro Cholangiopancreatogram - Omar Ruiz MD Date/Time: 06/13/20 12:18 Surgeon: Augustin Rodriguez PA-C Pre Op Diagnosis: acute renal failure/biloma/jaundice Patient Data Age: 85 Gender: M Height: 1.78 m Weight: 81.8 kg Last Vital Signs Temp 36.4 C L 06/13/20 08:00 Pulse 93 06/13/20 08:00 Resp 18 06/13/20 08:00 BP 126/62 06/13/20 08:00 Pulse Ox 100 06/13/20 08:00 Allergies Allergy/AdvReac Type Severity Reaction Status Date / Time Penicillins Allergy Mild Unknown Verified 06/13/20 12:11 Home Medications Medication Instructions Recorded Confirmed Type aspirin 81 mg tablet,delayed 81 mg PO DAILY 05/19/20 06/13/20 History release canagliflozin 100 mg tablet 100 mg PO DAILY 05/19/20 06/13/20 History coenzyme Q10 10 mg capsule 10 mg PO DAILY 05/19/20 06/13/20 History esomeprazole magnesium 20 mg 20 mg PO DAILY 05/19/20 06/13/20 History capsule,delayed release ezetimibe 10 mg-simvastatin 20 mg 1 tablet PO DAILY 05/19/20 06/13/20 History tablet glipizide 10 mg tablet 10 mg PO BID 05/19/20 06/13/20 History multivitamin,vx-wksp-tiaokmfo 1 tablet PO DAILY 05/19/20 06/13/20 History oxybutynin chloride 5 mg tablet 10 mg PO DAILY 05/19/20 06/13/20 History quinapril 20 mg tablet 20 mg PO DAILY 05/19/20 06/13/20 History acetaminophen 325 mg PO TID PRN 05/29/20 06/13/20 History ascorbic acid (vitamin C) [Vitamin 1 g PO DAILY 05/29/20 06/13/20 History C] cyanocobalamin (vitamin B-12) 500 mcg PO DAILY 05/29/20 06/13/20 History ergocalciferol (vitamin D2) 1,250 mcg PO WEEKLY 05/29/20 06/13/20 History [Vitamin D2] metformin [Glucophage] 1,000 mg PO BID 05/29/20 06/13/20 History ibuprofen 600 mg PO Q6H PRN #14 tablet 06/04/20 06/13/20 Rx Laboratory Tests 06/12/20 06/12/20 06/12/20 18:31 19:36 19:36 WBC 13.7 K/mm3 H K/mm3 (4.5-10.0) RBC 3.62 M/mm3 L M/mm3 (4.6-6.20) Hgb 10.6 g/dL L g/dL (14.0-18.0) Hct 30.7 % L % (42.0-52.0) MCV 84.8 fl fl (80-100) MCH 29.3 pg pg (26-34) MCHC 34.5 g/dl g/dl (32-36) RDW 15.9 % H % (11.5-14.5) Plt Count 317 k/mm3 k/mm3 (150-375) MPV 10.4 fl fl (7.4-10.4) Immature Gran % (Auto) 1.7 % H % (0-0.5) Neut % (Auto) 77.3 % H % (45.5-73.1) Lymph % (Auto) 11.4 % L % (18.3-44.2) Borden % (Auto) 6.9 % % (2.6-8.5) Eos % (Auto) 1.8 % % (0-4.4) Baso % (Auto) 0.9 % % (0.2-1.2) Lymph # (Auto) 1.56 K/mm3 K/mm3 (0.9-3.2) Borden # (Auto) 0.9 K/mm3 H K/mm3 (0.1-0.6) Eos # (Auto) 0.3 K/mm3 K/mm3 (0-0.3) Baso # (Auto) 0.1 K/mm3 K/mm3 (0.0-0.1) Abs Immat Gran (auto) 0.23 K/mm3 H K/mm3 (0.00-0.031) Absolute Neuts (auto) 10.6 K/mm3 H K/mm3 (1.3-6.7) Absolute Nucleated RBC 0.0 K/mm3 K/mm3 (0.0-0.012) Nucleated RBC % 0.0 % % (0.0-0.2) PT 16.3 Seconds H Seconds (11.1-14.7) INR 1.3 APTT 33.1 SECONDS SECONDS (22.3-36.8) Sodium 137 mmol/L mmol/L (137-145) Potassium 3.7 mmol/L mmol/L (3.4-5.0) Chloride 106 mmol/L mmol/L (98-107) Carbon Dioxide 17 mmol/L L mmol/L (22-30) Anion Gap 14 mmol/L mmol/L (8-16) BUN 47 mg/dL H mg/dL (9-20) Creatinine 3.50 mg/dL H mg/dL (0.7-1.3) Estim Creat Clear Calc 15 ml/min ml/min Estimated GFR 17 L (59 - ) Glucose 43 mg/dL L* mg/dL (75-110) POC Capillary Glucose Calcium 9.0 mg/dL mg/dL (8.4-10.2) Magnesium Total Bilirubin 6.0 mg/dL H mg/dL (0.2-1.3) Direct Bilirubin 2.6 mg/dL H mg/dL (0-0.3) AST 346 U/L H U/L (17-59) ALT 238 U/L H U/L (4-50
[2020-06-13] MEDS: LACTATED RINGERS 1,000 ML 150 ML IV CONT (12:24)
[2020-06-13 12:25] LABS: Hepatitis B Surface Antigen Negative (Negative)
[2020-06-13 12:32] LABS: HAV RESULT Negative (Negative); Hepatitis B Core IgM Result Negative (Negative)
[2020-06-13 12:42] LABS: Hepatitis C Virus Antibody Negative (Negative)
[2020-06-13] MEDS: PANTOPRAZOLE SODIUM IV 40 MG VIAL IV PUSH (13:56)
--- NOTE | 2020-06-13 14:07 | SUR.PHASEII ---
1340-PT TO GO TO [facility] STRAIGHT FROM GI LAB. NOTIFIED STAFF IN [facility], THEY ARE TO CALL WHEN READY FOR PT. 1400- PT COMFORTABLE, VSS. AWAITING CALL FROM [facility].
--- NOTE | 2020-06-13 14:14 | PM.PNGS ---
Progress Note: A&P Assessment and Plan (1) Jaundice: Code(s): R17 - Unspecified jaundice Status: Acute Assessment and Plan: Etiology not entirely clear. This apparently started even prior to surgery as labs drawn that morning were quite abnormal. HIDA scan is pending. (2) Abnormal CT of the abdomen: Code(s): R93.5 - Abnormal findings on diagnostic imaging of other abdominal regions, including retroperitoneum Status: Acute Assessment and Plan: Right upper quadrant fluid collection. While this could be a biloma, the absence of significant pain and the absence of a bile leak on ERCP suggest otherwise. With the bleeding experienced at surgery, it may be a hematoma. 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 Ruiz. Not sure how much this is playing a role in his current illness with jaundice. (4) COVID-19: Code(s): U07.1 - COVID-19 Status: Acute Assessment and Plan: Tested about 4 days ago at the [facility] to be positive. (5) CYNDI (acute kidney injury): Code(s): N17.9 - Acute kidney failure, unspecified Status: Acute Assessment and Plan: Creatinine improved today from 3.5 yesterday to 2.8 this morning. (6) Chronic cholecystitis without calculus: Code(s): K81.1 - Chronic cholecystitis Status: Acute Assessment and Plan: Status post laparoscopic cholecystectomy on June 04, 2020. (7) Diabetes: Code(s): E11.9 - Type 2 diabetes mellitus without complications Status: Chronic (8) CHF (congestive heart failure): Qualifiers: Heart failure type: unspecified Heart failure chronicity: chronic Qualified Code(s): I50.9 - Heart failure, unspecified Code(s): I50.9 - Heart failure, unspecified Status: Chronic Subjective Subjective Date/Time Seen: 06/13/20 14:14 Post Op day: 9 Patient reports: pain is less Interval history: Patient is an 85-year-old man with history of insulin-dependent diabetes, congestive heart failure and dementia who resides at [facility]. He was seen in the office in late April with complaints of recurrent episodes of right upper quadrant abdominal pain. He had sludge on ultrasound. HIDA scan showed no visualization of the gallbladder or the duodenum in an hour. After 4 hours however there was radioisotope in both the small intestine and the gallbladder consistent with chronic cholecystitis. Labs at the time of his office visit showed mild elevation of the liver function tests but no elevation of his bilirubin. He was scheduled for outpatient surgery and underwent laparoscopic cholecystectomy on 06/04/2020. Usually preoperative labs are done prior to surgery and I am able to review them. He had repeat labs the morning of surgery and it was not noticed by me that his total bilirubin was now elevated at 4.0, alkaline phosphatase was 1140. AST and ALT were likewise elevated. He underwent laparoscopic cholecystectomy on 06/04/2020 but no cholangiogram was done as I was unaware of these abnormalities and at his office visit his liver function tests were much different. The surgery went well. There was no abnormality with bile duct anatomy but the patient did have a lot of chronic inflammation in the upper half of the gallbladder requiring peeling the upper half of the gallbladder off the liver surface and some resulting bleeding from the liver surface. Additionally there was a small superficial vein on the liver surface which caused additional bleeding problems. This bleeding responded to cautery and Surgiflo administration. I also had to apply Surgicel and apply some pressure to get the superficial vein to stop oozing. Nonetheless, by the conclusion of the surgery the gallbladder fossa was quite dry and satisfactory. Even with the increased bleeding from the
[2020-06-13] MEDS: KCL 20 MEQ/SW 100 ML 100 ML 50 MEQ IVPB (14:45)
[2020-06-13] MEDS: MAGNESIUM SULF 1 GM/D5W 100 ML 1 GM/100 ML BAG IVPB (15:30)
[2020-06-13] MEDS: ALBUTEROL SULFATE (*SP) AEROSOL 1 PUFF 2 PUFF INHALATION ×2 (16:16→21:29)
[2020-06-13 17:23] LABS: Glucose Point of Care 70 (65-105)
[2020-06-13] MEDS: DEXTROSE 5%/0.45% SOD CHL 1,000 ML 75 ML IV CONT (17:55)
[2020-06-13 22:18] LABS: Glucose Point of Care 53 (65-105)
[2020-06-13 22:49] LABS: Glucose Point of Care 104 (65-105)
[2020-06-14] VITALS: BP 117/67; PULSE 106; RESP 18; TEMP 36.8; O2SAT 100
[2020-06-14 04:00] VITALS: BP 118/60; PULSE 105; RESP 18; TEMP 36.9; O2SAT 99
[2020-06-14] MEDS: metroNIDAZOLE 500 MG/ISO 100ML 500 MG/100 ML BAG 100 MG IVPB ×3 (04:32→20:44)
[2020-06-14] MEDS: DEXTROSE 5%/0.45% SOD CHL 1,000 ML 75 ML IV CONT ×2 (06:55→20:48)
[2020-06-14 07:10] LABS: Basophils Percent Auto 0.4 % (0.2-1.2); Eosinophils Absolute Auto 0.3 K/mm3 (0-0.3); Eosinophils Percent Auto 2.6 % (0-4.4); Hematocrit 29.8 % (42.0-52.0); Hemoglobin 10.1 g/dL (14.0-18.0); Immature Granulocyte Absolute 0.15 K/mm3 (0.00-0.031); Immature Granulocyte Percent A 1.4 % (0-0.5); Lymphocytes Absolute Auto 1.19 K/mm3 (0.9-3.2); Lymphocytes Percent Auto 10.9 % (18.3-44.2); Mean Corpuscular HGB Conc 33.9 g/dl (32-36); Mean Corpuscular Hemoglobin 28.9 pg (26-34); Mean Corpuscular Volume 85.4 fl (80-100); Mean Platelet Volume 9.8 fl (7.4-10.4); Monocytes Absolute Auto 0.8 K/mm3 (0.1-0.6); Monocytes Percent Auto 7.2 % (2.6-8.5); Neutrophils Absolute Auto 8.5 K/mm3 (1.3-6.7); Neutrophils Percent Auto 77.5 % (45.5-73.1); Platelet Count Result 363 k/mm3 (150-375); Red Blood Count 3.49 M/mm3 (4.6-6.20); Red Cell Distribution Width 16.5 % (11.5-14.5); White Blood Count 10.9 K/mm3 (4.5-10.0)
[2020-06-14 07:24] LABS: Alanine Aminotransferase 262 U/L (4-50); Albumin Level 2.8 g/dL (3.5-5.1); Alkaline Phosphatase 1289 U/L (38-126); Anion Gap 12 mmol/L (8-16); Aspartate Amino Transferase 434 U/L (17-59); Bilirubin Direct 4.2 mg/dL (0-0.3); Bilirubin,Total 7.4 mg/dL (0.2-1.3); Blood Urea Nitrogen 32 mg/dL (9-20); Calcium 8.8 mg/dL (8.4-10.2); Carbon Dioxide 17 mmol/L (22-30); Chloride 110 mmol/L (98-107); Estimated CRCL calculation 20 ml/min; Estimated Glomerular Filt Rate 25; Glucose 61 mg/dL (75-110); Magnesium 1.6 mg/dL (1.6-2.3); Phosphorus 3.5 mg/dL (2.5-4.5); Potassium 3.3 mmol/L (3.4-5.0); Sodium 139 mmol/L (137-145)
[2020-06-14 07:27] LABS: Glucose Point of Care 64 (65-105)
[2020-06-14 08:00] VITALS: BP 128/69; PULSE 100; PULSE 104; RESP 14; RESP 16; TEMP 36.4; O2SAT 100
--- NOTE | 2020-06-14 08:24 | WPDGIPROGNO ---
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 I suspect this likely contributes to his elevated alk-phos and jaundice. Sphincterotomy was unable to be performed. Plan is to continue monitor liver tests. If necessary we can consider elective referrals for sphincterotomy to [facility]. (2) Abnormal CT of the abdomen: Code(s): R93.5 - Abnormal findings on diagnostic imaging of other abdominal regions, including retroperitoneum Status: Acute Assessment and Plan: No evidence of bile leak by HIDA scan nor by ERCP. Suspect finding on CT scan is a hematoma. Patient has no pain. Observation encouraged at this point. (3) Jaundice: Code(s): R17 - Unspecified jaundice Status: Acute Assessment and Plan: Elevated LFTs may be related to papillary stenosis. Plan is for conservative follow-up at this point. Follow-up LFTs after discharge encourage. We will advance diet if others agree. (4) Dementia: Code(s): F03.90 - Unspecified dementia without behavioral disturbance Status: Acute Subjective Date/time seen: 06/14/20 08:24 patient comfortable this morning. But with baseline dementia unable to add any disc useful history. He states he has no abdominal pain. Review of Systems Review of Systems: All systems reviewed & are unremarkable except as noted in HPI and below Exam Narrative: Exam Narrative: Patient is alert afebrile. HEENT exam unremarkable. Mild icterus evident. Lungs are clear. Heart without murmur. Abdomen bowel sounds present soft nontender no organomegaly. No masses. Objective Data Vital Signs Vital Signs: Vital Signs - 24 hr 06/13/20 12:00 06/13/20 12:11 06/13/20 13:05 Temperature 97.3 F L Pulse Rate 93 70 100 Respiratory Rate 18 16 18 Blood Pressure 125/75 117/62 152/82 H Pulse Oximetry 100 98 100 06/13/20 13:15 06/13/20 13:25 06/13/20 13:35 Temperature Pulse Rate 87 87 86 Respiratory Rate 20 18 20 Blood Pressure 120/72 131/76 128/79 Pulse Oximetry 93 96 96 06/13/20 13:45 06/13/20 13:55 06/13/20 14:50 Temperature 97.5 F L Pulse Rate 74 76 86 Respiratory Rate 18 20 18 Blood Pressure 128/82 129/79 136/74 Pulse Oximetry 98 97 100 06/13/20 15:05 06/13/20 15:35 06/13/20 16:35 Temperature 97.6 F 97.6 F 97.6 F Pulse Rate 87 92 99 Respiratory Rate 18 18 18 Blood Pressure 112/60 126/67 127/62 Pulse Oximetry 100 100 98 06/13/20 20:00 06/14/20 00:00 06/14/20 04:00 Temperature 98.1 F 98.3 F 98.5 F Pulse Rate 106 H 106 H 105 H Respiratory Rate 18 18 18 Blood Pressure 138/62 117/67 118/60 Pulse Oximetry 100 100 99 Intake/Output Intake/Output: Intake & Output 06/11/20 06/12/20 06/13/20 06/14/20 23:59 23:59 23:59 23:59 Intake Total 1100 1615 1200 Output Total 1175 800 Balance 1100 440 400 Meds/Results Medications: Active Medications Generic Name Dose Route Start Last Admin Trade Name Freq PRN Reason Stop Dose Admin Albuterol 2 puff 06/13/20 08:00 06/13/20 21:29 Albuterol Sulfate (*Sp) Aerosol 1 Puff INHALATION 2 puff QIDRT ADILIA Administration Albuterol 2 puff 06/12/20 22:58 Albuterol Sulfate (*Sp) Aerosol 1 Puff INHALATION QIDRT PRN Shortness Of Breath Dextrose 12.5 gm 06/12/20 22:59 06/13/20 21:15 Dextrose 50% 25 Gm/50 Ml Syringe IV PUSH 12.5 gm PRN PRN Administration Hypoglycemia Protocol Glucagon 1 mg 06/12/20 22:59 Glucagon For Inj 1 Mg Vial IM PRN PRN Hypoglycemia Protocol Glucose 15 gm 06/12/20 22:59 Glucose Oral Gel 15 Gm Of Glucse In 37.5 Gm Tube PO PRN PRN Hypoglycemia Protocol Metronidazole 500 mg in 100 mls @ 100 mls/hr 06/13/20 05:00 06/14/20 05:30 Flagyl 500 Mg/Iso Soln 100 Ml IVPB Infused Q6H ADILIA Infusion Dextrose 1,0
[2020-06-14] MEDS: PANTOPRAZOLE SODIUM IV 40 MG VIAL IV PUSH (09:31)
[2020-06-14] MEDS: ALBUTEROL SULFATE (*SP) AEROSOL 1 PUFF 2 PUFF INHALATION (10:11)
[2020-06-14 12:00] VITALS: BP 114/62; PULSE 104; RESP 14; TEMP 36.3; O2SAT 100
[2020-06-14 12:35] LABS: Glucose Point of Care 87 (65-105)
--- NOTE | 2020-06-14 13:20 | PM.PNGS ---
Progress Note: A&P Assessment and Plan (1) Jaundice: Onset Date: ~05/2020 Code(s): R17 - Unspecified jaundice Status: Acute Assessment and Plan: This was the main reason for the patient's readmission. Liver function tests slightly improved overnight. Patient not complain of abdominal pain. 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 Sphincterotomy unable to be done. Plan is observation for now. (3) Hypertension: Code(s): I10 - Essential (primary) hypertension Status: Acute (4) Diabetes: Code(s): E11.9 - Type 2 diabetes mellitus without complications Status: Chronic (5) Dementia: Code(s): F03.90 - Unspecified dementia without behavioral disturbance Status: Acute (6) COVID-19: Code(s): U07.1 - COVID-19 Status: Acute (7) CYNDI (acute kidney injury): Code(s): N17.9 - Acute kidney failure, unspecified Status: Acute Additional Plan Continue full liquid diet Observation see if liver functions come back toward normal on their own. If liver functions not improving consider referral to [facility] for tertiary care consultation with GI for ERCP and possible sphincterotomy with stenting. Appreciate GI input. Subjective Subjective Date/Time Seen: 06/14/20 16:20 Patient up with the nurses when I came in the room. Denies shortness of breath. Denies nausea. Nurse reports patient is tolerating some full liquids when she reminds him to take it. He has had 2 smears of stool and denies abdominal pain. Review of Systems Constitutional: Constitutional: Reports no additional constitutional complaints ENT: Reports other (Mucous Membranes moist.) Cardiovascular: Cardiovascular: Denies dyspnea Respiratory: Respiratory: Denies pain on inspiration and Denies dyspnea Gastrointestinal: Gastrointestinal: Reports as per HPI, Reports diarrhea (Not voluminous.), Denies nausea and Denies vomiting Musculoskeletal: Musculoskeletal: Reports other (No calf swelling or edema) Integumentary/Breasts: Skin/Breast: Reports system reviewed and no additional complaints, except as docu Exam Const: General: cooperative, no acute distress, alert and awake Orientation/consciousness: patient oriented x3 HENMT: Mouth: Yes moist mucous membranes Neck: Neck: normal visual inspection Chest: Chest palpation & inspection: normal inspection of the chest Resp: Effort & Inspection: normal respiratory effort Auscultation: clear to auscultation bilaterally Cardio: Jugular venous distension: no JVD Rate: regular rate Rhythm: regular rhythm GI: Inspection: normal to inspection and incision (Laparoscopic incisions clean and dry with surgical glue in place.) Auscultation: normal bowel sounds Rectal Exam: deferred Neuro: General: patient oriented x3 and moves all extremities Speech: normal speech Extrem: General: normal exam except as noted Psych: Mental Status: mental status grossly normal Speech and movement: Normal speech and movement present Affect: normal affect Thought content: Yes Normal thought content present Objective Data Vital Signs Vital Signs: Vital Signs - 24 hr 06/13/20 13:25 06/13/20 13:35 06/13/20 13:45 Temperature Pulse Rate 87 86 74 Respiratory Rate 18 20 18 Blood Pressure 131/76 128/79 128/82 Pulse Oximetry 96 96 98 06/13/20 13:55 06/13/20 14:50 06/13/20 15:05 Temperature 36.4 C L 36.4 C Pulse Rate 76 86 87 Respiratory Rate 20 18 18 Blood Pressure 129/79 136/74 112/60 Pulse Oximetry 97 100 100 06/13/20 15:35 06/13/20 16:35 06/13/20 20:00 Temperature 36.4 C 36.4 C 36.7 C Pulse Rate 92 99 106 H Respiratory Rate 18 18 18 Blood Pressure 126/67 127/62 138/62 Pulse Oximetry 100 98 100 06/14/20 00:00 06/14/20 04:00 06/14/20 08:00 Temperature 36.8 C 36.9 C 36.4 C L P
--- NOTE | 2020-06-14 14:16 | PM.IMPN ---
Progress Note: A&P Assessment and Plan (1) Abnormal CT of the abdomen: Code(s): R93.5 - Abnormal findings on diagnostic imaging of other abdominal regions, including retroperitoneum Status: Acute Assessment and Plan: Loculated fluid collection in GB fossa on CT imaging. [place] to be initially a biloma, however, there is no evidence of bile leak on ERCP or HIDA. Other etiologies include hematoma vs abscess. The patient has been admitted to the medical-surgical floor. General surgery consulted; await further recommendations. Input appreciated Continue general surgery recommendations. GI also consulted per ER provider/General Surgery. Appreciate recommendations (2) Jaundice: Onset Date: ~05/2020 Code(s): R17 - Unspecified jaundice Status: Acute Assessment and Plan: Possibly related to papillary stenosis. GI following and appreciate recommendations. CMP shows elevated LFTs and bili today Monitor liver function test. Await further rec from GI (3) CYNDI (acute kidney injury): Code(s): N17.9 - Acute kidney failure, unspecified Status: Acute Assessment and Plan: Cr 3.50 on arrival; 2.50 today; slow improvement with IV fluids. Likely prerenal as patient having decreased PO intake recently. Continue IV fluid hydration. Monitor renal function. Avoid nephrotoxin agents. Renally dose medications. Monitor her urine output. Consider renal ultrasound for further eval if no improvement Consider Nephrology consultation if renal function does not improve. (4) Hypoglycemia: Code(s): E16.2 - Hypoglycemia, unspecified Status: Acute Assessment and Plan: Known diabetic. Likely secondary to poor p.o. intake of food. Diet now advanced per GI Hypoglycemia protocol. Hold home hypoglycemic agents at this time and resume when appropriate. (5) Leukocytosis: Qualifiers: Leukocytosis type: unspecified Qualified Code(s): D72.829 - Elevated white blood cell count, unspecified Code(s): D72.829 - Elevated white blood cell count, unspecified Status: Acute Assessment and Plan: Likely secondary to surgery and recent COVID infection. Monitor CBCD. (6) COVID-19: Code(s): U07.1 - COVID-19 Status: Acute Assessment and Plan: Continue droplet isolation. Continue supportive care. P.r.n. bronchodilators ordered. (7) CHF (congestive heart failure): Qualifiers: Heart failure type: unspecified Heart failure chronicity: chronic Qualified Code(s): I50.9 - Heart failure, unspecified Code(s): I50.9 - Heart failure, unspecified Status: Chronic Assessment and Plan: compensated. Monitor Is and Os, daily weights. Monitor closely with IV fluids (8) Diabetes: Code(s): E11.9 - Type 2 diabetes mellitus without complications Status: Chronic Assessment and Plan: BGL 60s this morning; hypoglycemia protocol implemented. Home meds held at this moment Hold home medications for now Accuchecks ACHS when off NPO status, hypoglycemia protocol, correctional insulin, diabetic diet when off NPO status Subjective Date/time seen: 06/14/20 14:16 Interval history: Patient is a 85-year-old diabetic male with history of CHF, dementia, HTN, and HLD who is seen in follow up for a likely surgical complication of a loculated fluid collection found on CT abd/pelvis, elevated LFTs and bilirubin, as well as, CYNDI. Patient has no complaints for me at the moment. He is A&Ox3 but seems pleasantly confused at times. Denies subjective f/c/s, headaches, dizziness, lightheadedness, cp/palpi
--- NOTE | 2020-06-14 14:16 | P.PNIM_ITS ---
Progress Note: A&P Assessment and Plan (1) Abnormal CT of the abdomen: Code(s): R93.5 - Abnormal findings on diagnostic imaging of other abdominal regions, including retroperitoneum Status: Acute Assessment and Plan: Loculated fluid collection in GB fossa on CT imaging. [place] to be initially a biloma, however, there is no evidence of bile leak on ERCP or HIDA. Other etiologies include hematoma vs abscess. The patient has been admitted to the medical-surgical floor. * General surgery consulted; await further recommendations. Input appreciated * Continue general surgery recommendations. * GI also consulted per ER provider/General Surgery. Appreciate recommendations (2) Jaundice: Onset Date: ~05/2020 Code(s): R17 - Unspecified jaundice Status: Acute Assessment and Plan: Possibly related to papillary stenosis. GI following and appreciate recommendations. CMP shows elevated LFTs and bili today * Monitor liver function test. * Await further rec from GI (3) CYNDI (acute kidney injury): Code(s): N17.9 - Acute kidney failure, unspecified Status: Acute Assessment and Plan: Cr 3.50 on arrival; 2.50 today; slow improvement with IV fluids. Likely prerenal as patient having decreased PO intake recently. * Continue IV fluid hydration. * Monitor renal function. * Avoid nephrotoxin agents. Renally dose medications. * Monitor her urine output. * Consider renal ultrasound for further eval if no improvement * Consider Nephrology consultation if renal function does not improve. (4) Hypoglycemia: Code(s): E16.2 - Hypoglycemia, unspecified Status: Acute Assessment and Plan: Known diabetic. Likely secondary to poor p.o. intake of food. Diet now advanced per GI * Hypoglycemia protocol. * Hold home hypoglycemic agents at this time and resume when appropriate. (5) Leukocytosis: Qualifiers: Leukocytosis type: unspecified Qualified Code(s): D72.829 - Elevated white blood cell count, unspecified Code(s): D72.829 - Elevated white blood cell count, unspecified Status: Acute Assessment and Plan: Likely secondary to surgery and recent COVID infection. * Monitor CBCD. (6) COVID-19: Code(s): U07.1 - COVID-19 Status: Acute Assessment and Plan: Continue droplet isolation. * Continue supportive care. * P.r.n. bronchodilators ordered. (7) CHF (congestive heart failure): Qualifiers: Heart failure type: unspecified Heart failure chronicity: chronic Qualified Code(s): I50.9 - Heart failure, unspecified Code(s): I50.9 - Heart failure, unspecified Status: Chronic Assessment and Plan: compensated. * Monitor Is and Os, daily weights. * Monitor closely with IV fluids (8) Diabetes: Code(s): E11.9 - Type 2 diabetes mellitus without complications Status: Chronic Assessment and Plan: BGL 60s this morning; hypoglycemia protocol implemented. Home meds held at this moment * Hold home medications for now * Accuchecks ACHS when off NPO status, hypoglycemia protocol, correctional insul in, diabetic diet when off NPO status Subjective Date/time seen: 06/14/20 14:16 Interval history: Patient i
[2020-06-14 14:31] LABS: Glucose Point of Care 162 (65-105)
[2020-06-14 16:00] VITALS: BP 124/73; PULSE 105; RESP 16; TEMP 36.1; O2SAT 100
[2020-06-14 17:02] LABS: Glucose Point of Care 198 (65-105)
[2020-06-14 20:00] VITALS: BP 129/77; PULSE 99; RESP 20; TEMP 36.5; O2SAT 100
[2020-06-14] MEDS: levoFLOXacin 500 MG/D5W 100 ML 500 MG/100 ML BAG 100 MG IVPB (23:43)
[2020-06-14 23:53] LABS: Glucose Point of Care 184 (65-105)
[2020-06-15] VITALS: BP 113/69; PULSE 110; RESP 20; TEMP 36.7; O2SAT 100
[2020-06-15] MEDS: metroNIDAZOLE 500 MG/ISO 100ML 500 MG/100 ML BAG 100 MG IVPB ×5 (00:57→22:08)
[2020-06-15 04:00] VITALS: BP 132/94; PULSE 105; RESP 20; TEMP 36.8; O2SAT 100
[2020-06-15 06:32] LABS: Hematocrit 27.9 % (42.0-52.0); Hemoglobin 9.6 g/dL (14.0-18.0); Mean Corpuscular HGB Conc 34.4 g/dl (32-36); Mean Corpuscular Hemoglobin 28.7 pg (26-34); Mean Corpuscular Volume 83.3 fl (80-100); Mean Platelet Volume 9.7 fl (7.4-10.4); Platelet Count Result 347 k/mm3 (150-375); Red Blood Count 3.35 M/mm3 (4.6-6.20); Red Cell Distribution Width 16.6 % (11.5-14.5); White Blood Count 9.9 K/mm3 (4.5-10.0)
[2020-06-15 06:48] LABS: Alanine Aminotransferase 181 U/L (4-50); Albumin Level 2.9 g/dL (3.5-5.1); Alkaline Phosphatase 1140 U/L (38-126); Anion Gap 10 mmol/L (8-16); Aspartate Amino Transferase 169 U/L (17-59); Bilirubin Direct 1.6 mg/dL (0-0.3); Bilirubin,Total 4.9 mg/dL (0.2-1.3); Blood Urea Nitrogen 24 mg/dL (9-20); Calcium 8.7 mg/dL (8.4-10.2); Carbon Dioxide 18 mmol/L (22-30); Chloride 109 mmol/L (98-107); Estimated CRCL calculation 25 ml/min; Estimated Glomerular Filt Rate 32; Glucose 184 mg/dL (75-110); Magnesium 1.4 mg/dL (1.6-2.3); Potassium 3.4 mmol/L (3.4-5.0); Sodium 137 mmol/L (137-145)
[2020-06-15 06:50] LABS: Glucose Point of Care 177 (65-105)
[2020-06-15 06:56] LABS: Basophils Absolute Manual 0.09 K/mm3 (0.0-0.1); Basophils Percent Manual 1 % (0-1); Eosinophils Absolute Manual 0.39 K/mm3 (0.02-0.5); Eosinophils Percent Manual 4 % (0-4); Lymphocytes Absolute Manual 2.77 K/mm3 (1.1-4.5); Monocytes Absolute Manual 0.89 K/mm3 (0.1-0.90); Monocytes Percent Manual 9 % (3-9); Neutrophils Percent Manual 58 % (46-73); Platelet Estimate Adequate (Adequate); Total Cells Counted 100
[2020-06-15 06:57] LABS: Crenated RBC 2+ (NORMAL); Target Cells 2+ (NORMAL)
[2020-06-15 08:00] VITALS: BP 118/69; PULSE 95; RESP 16; TEMP 36.4; O2SAT 97
[2020-06-15] MEDS: POTASSIUM CHLORIDE 20 MEQ PACKET (FOR LIQUID) PO (08:50)
[2020-06-15] MEDS: MAGNESIUM SULF 1 GM/D5W 100 ML 1 GM/100 ML BAG IVPB (08:50)
[2020-06-15] MEDS: lisinopriL 20 MG TABLET PO (08:53)
[2020-06-15] MEDS: PANTOPRAZOLE SODIUM IV 40 MG VIAL IV PUSH (08:54)
--- NOTE | 2020-06-15 09:12 | WPDGIPROGNO ---
Progress Note: A&P Assessment and Plan (1) Dementia: Code(s): F03.90 - Unspecified dementia without behavioral disturbance Status: Acute (2) Jaundice: Onset Date: ~05/2020 Code(s): R17 - Unspecified jaundice Status: Acute Assessment and Plan: Patient's jaundice appears to be at baseline compared to when he had his cholecystectomy several weeks ago. I suspect this is related to biliary papillary stenosis at the ampulla. He has a quite narrowed orifice. Should his medical condition allow at some point referral to [facility] for sphincterotomy is encouraged. This may be limited by his dementia and COVID status. Currently patient appears to be at his baseline comfortable at rest. Will allow diet as tolerated. Follow-up LFTs advised after discharge. An elective referral for sphincterotomy encouraged if primary service agrees. (3) Duodenal papillary stenosis: Onset Date: ~05/2020 Code(s): K31.5 - Obstruction of duodenum Status: Chronic (4) Abnormal CT of the abdomen: Code(s): R93.5 - Abnormal findings on diagnostic imaging of other abdominal regions, including retroperitoneum Status: Acute Assessment and Plan: Hilar fluid collection likely hematoma. No evidence of bile leak by ERCP nor HIDA scan. Subjective Date/time seen: 06/15/20 09:12 Patient remains comfortable. Pleasantly confused. Not well oriented. He denies abdominal pain. Offers no specific complaints but when asked states he does not feel well. Review of Systems Review of Systems: ROS unobtainable: Yes unobtainable due to mental status Exam Narrative: Exam Narrative: Physical exam reveals him to be alert. Mild icterus evident. Lungs are clear. Heart without murmur. Abdomen bowel sounds are present soft nontender with no organomegaly. Laparoscopic incisions appear to be healing well. Objective Data Vital Signs Vital Signs: Vital Signs - 24 hr 06/14/20 12:00 06/14/20 16:00 06/14/20 20:00 Temperature 97.4 F L 97.0 F L 97.7 F Pulse Rate 104 H 105 H 99 Respiratory Rate 14 16 20 Blood Pressure 114/62 124/73 129/77 Pulse Oximetry 100 100 100 06/15/20 00:00 06/15/20 04:00 Temperature 98.1 F 98.2 F Pulse Rate 110 H 105 H Respiratory Rate 20 20 Blood Pressure 113/69 132/94 H Pulse Oximetry 100 100 Intake/Output Intake/Output: Intake & Output 06/12/20 06/13/20 06/14/20 06/15/20 23:59 23:59 23:59 23:59 Intake Total 1100 1615 2690 600 Output Total 1175 1050 700 Balance 8933 714 6325 -100 Meds/Results Medications: Active Medications Generic Name Dose Route Start Last Admin Trade Name Freq PRN Reason Stop Dose Admin Albuterol 2 puff 06/12/20 22:58 Albuterol Sulfate (*Sp) Aerosol 1 Puff INHALATION QIDRT PRN Shortness Of Breath Dextrose 12.5 gm 06/12/20 22:59 06/13/20 21:15 Dextrose 50% 25 Gm/50 Ml Syringe IV PUSH 12.5 gm PRN PRN Administration Hypoglycemia Protocol Glucagon 1 mg 06/12/20 22:59 Glucagon For Inj 1 Mg Vial IM PRN PRN Hypoglycemia Protocol Glucose 15 gm 06/12/20 22:59 Glucose Oral Gel 15 Gm Of Glucse In 37.5 Gm Tube PO PRN PRN Hypoglycemia Protocol Metronidazole 500 mg in 100 mls @ 100 mls/hr 06/13/20 05:00 06/15/20 06:37 Flagyl 500 Mg/Iso Soln 100 Ml IVPB Infused Q6H ADILIA Infusion Dextrose 1,000 mls @ 100 mls/hr 06/12/20 22:59 Dextrose 5% 1,000 Ml IVPB PRN PRN Hypoglycemia Protocol Levofloxacin/Dextrose 500 mg in 100 mls @ 100 mls/hr 06/14/20 23:00 06/15/20 00:43 Levaquin 500 Mg/D5w 100 Ml IVPB Infused Q48H ADILIA Infusion Dextrose/Sodium Chloride 1,000 mls @ 75 mls/hr 06/13/20 17:20 06/14/20 20:48 Dextrose 5% Sodium Chloride 0.45% IV CONT 75 mls/hr .[id number] ADILIA Administration Insulin Aspart 2 - 5 units 06/15/20 12:00 Insulin Aspart (*Bkc) 100 Units/Ml SUB-Q TIDWM ADILIA Protocol Lisinopril 20 mg
--- NOTE | 2020-06-15 10:01 | WPDANESPN ---
Anes - Prog Note Post-Op Date/Time: 06/15/20 10:01 Cardiovascular status: normal Respiratory status: normal Airway patency: baseline Mental status: baseline Post-Op hydration status: normal Vital Signs: Last Vital Signs Temp 36.8 C 06/15/20 04:00 Pulse 105 H 06/15/20 04:00 Resp 20 06/15/20 04:00 BP 132/94 H 06/15/20 04:00 Pulse Ox 100 06/15/20 04:00 Pain Score (VAS): 2 I/O: Intake & Output 06/14/20 06/15/20 06/15/20 23:59 07:59 15:59 Intake Total 1340 600 Output Total 250 700 Balance 1090 -100 Laboratory Tests 06/15/20 06:17 06/15/20 06:17 06/14/20 06/14/20 06/14/20 10:14 12:12 16:40 WBC RBC Hgb Hct MCV MCH MCHC RDW Plt Count MPV Immature Gran % (Auto) Neut % (Auto) Lymph % (Auto) [place] % (Auto) Eos % (Auto) Baso % (Auto) Lymph # (Auto) [place] # (Auto) Eos # (Auto) Baso # (Auto) Abs Immat Gran (auto) Absolute Neuts (auto) Absolute Nucleated RBC Total Counted Neutrophils % (Manual) Lymphocytes % (Manual) Monocytes % (Manual) Eosinophils % (Manual) Basophils % (Manual) Nucleated RBC % Abs Lymphs (Manual) Abs Monocytes (Manual) Absolute Eos (Manual) Abs Basophils (Manual) Platelet Estimate Target Cells Crenated Cell Sodium Potassium Chloride Carbon Dioxide Anion Gap BUN Creatinine Estim Creat Clear Calc Estimated GFR Glucose POC Capillary Glucose 87 162 H 198 H Calcium Phosphorus Magnesium Total Bilirubin Direct Bilirubin AST ALT Alkaline Phosphatase Total Protein Albumin 06/14/20 06/15/20 06/15/20 23:42 06:17 06:17 WBC 9.9 RBC 3.35 L Hgb 9.6 L Hct 27.9 L MCV 83.3 MCH 28.7 MCHC 34.4 RDW 16.6 H Plt Count 347 MPV 9.7 Immature Gran % (Auto) Not Reportable Neut % (Auto) Not Reportable Lymph % (Auto) Not Reportable [place] % (Auto) Not Reportable Eos % (Auto) Not Reportable Baso % (Auto) Not Reportable Lymph # (Auto) Not Reportable [place] # (Auto) Not Reportable Eos # (Auto) Not Reportable Baso # (Auto) Not Reportable Abs Immat Gran (auto) Not Reportable Absolute Neuts (auto) Not Reportable Absolute Nucleated RBC Not Reportable Total Counted 100 Neutrophils % (Manual) 58 Lymphocytes % (Manual) 28.0 Monocytes % (Manual) 9 Eosinophils % (Manual) 4 Basophils % (Manual) 1 Nucleated RBC % Not Reportable Abs Lymphs (Manual) 2.77 Abs Monocytes (Manual) 0.89 Absolute Eos (Manual) 0.39 Abs Basophils (Manual) 0.09 Platelet Estimate Adequate Target Cells 2+ Crenated Cell 2+ Sodium 137 Potassium 3.4 Chloride 109 H Carbon Dioxide 18 L Anion Gap 10 BUN 24 H Creatinine 2.00 H Estim Creat Clear Calc 25 Estimated GFR 32 L Glucose 184 H POC Capillary Glucose 184 H Calcium 8.7 Phosphorus 3.0 Magnesium 1.4 L Total Bilirubin 4.9 H Direct Bilirubin 1.6 H AST 169 H ALT 181 H Alkaline Phosphatase 1140 H Total Protein 6.0 L Albumin 2.9 L 06/15/20 06:47 WBC RBC Hgb Hct MCV MCH MCHC RDW Plt Count MPV Immature Gran % (Auto) Neut % (Auto) Lymph % (Auto) [place] % (Auto) Eos % (Auto) Baso % (Auto) Lymph # (Auto) [place] # (Auto) Eos # (Auto) Baso # (Auto) Abs Immat Gran (auto) Absolute Neuts (auto) Absolute Nucleated RBC Total Counted Neutrophils % (Manual) Lymphocytes % (Manual) Monocytes % (Manual) Eosinophils % (Manual) Basophils % (Manual) Nucleated RBC % Abs Lymphs (Manual) Abs Monocytes (Manual) Absolute Eos (Manual) Abs Basophils (Manual) Platelet Estimate Target Cells Crenated Cell Sodium Potassium Chloride Carbon Dioxide Anion Gap BUN Creatinine Estim Creat Clear Calc Estimated GFR Glucose POC Capillary Glucose 177 H Calcium P
--- NOTE | 2020-06-15 11:17 | P.PNIM_ITS ---
Progress Note: A&P Assessment and Plan (1) Abnormal CT of the abdomen: Code(s): R93.5 - Abnormal findings on diagnostic imaging of other abdominal regions, including retroperitoneum Status: Acute Assessment and Plan: Loculated fluid collection in GB fossa on CT imaging. Initially, felt to be a biloma, however, there is no evidence of bile leak on ERCP or HIDA. Other etiologies include hematoma vs abscess. * General surgery and GI consulted; await further recommendations. Input appreciated * Continue general surgery recommendations. (2) Jaundice: Onset Date: ~05/2020 Code(s): R17 - Unspecified jaundice Status: Acute Assessment and Plan: Possibly related to papillary stenosis. GI following and appreciate recommendations. CMP shows improved LFTs and bili today * Monitor liver function test. * Await further rec from GI (3) CYNDI (acute kidney injury): Code(s): N17.9 - Acute kidney failure, unspecified Status: Acute Assessment and Plan: Cr 3.50 on arrival; 2.00 today; slow improvement with IV fluids. Likely prerenal as patient having decreased PO intake recently. * Continue light IV fluid hydration until improved PO intake * Monitor renal function. * Avoid nephrotoxin agents. Renally dose medications. * Monitor her urine output. * Consider renal ultrasound for further eval if no improvement * Consider Nephrology consultation if renal function does not improve. (4) Hypoglycemia: Code(s): E16.2 - Hypoglycemia, unspecified Status: Acute Assessment and Plan: Known diabetic. Likely secondary to poor p.o. intake of food. Diet now advanced per GI with improvement in BGL * Hypoglycemia protocol. * Hold home hypoglycemic agents at this time and resume when appropriate. (5) Leukocytosis: Qualifiers: Leukocytosis type: unspecified Qualified Code(s): D72.829 - Elevated white blood cell count, unspecified Code(s): D72.829 - Elevated white blood cell count, unspecified Status: Acute Assessment and Plan: Likely secondary to surgery and recent COVID infection. Imroved again today * Monitor CBCD. (6) COVID-19: Code(s): U07.1 - COVID-19 Status: Acute Assessment and Plan: Continue droplet isolation. * Continue supportive care. * P.r.n. bronchodilators ordered. (7) CHF (congestive heart failure): Qualifiers: Heart failure type: unspecified Heart failure chronicity: chronic Qualified Code(s): I50.9 - Heart failure, unspecified Code(s): I50.9 - Heart failure, unspecified Status: Chronic Assessment and Plan: compensated. * Monitor Is and Os, daily weights. * Monitor closely with IV fluids (8) Diabetes: Code(s): E11.9 - Type 2 diabetes mellitus without complications Status: Chronic Assessment and Plan: BGL mid-upper 100s this morning; hypoglycemia protocol implemented. Home meds held at this moment * Hold home medications for now * Accuchecks ACHS when off NPO status, hypoglycemia protocol, correctional insulin, diabetic/low fat diet Subjective Date/time seen: 06/15/20 11:17 Interval history: Patient is a 85-year-old diabetic male with history of CHF, dementia, HTN
--- NOTE | 2020-06-15 11:17 | PM.IMPN ---
Progress Note: A&P Assessment and Plan (1) Abnormal CT of the abdomen: Code(s): R93.5 - Abnormal findings on diagnostic imaging of other abdominal regions, including retroperitoneum Status: Acute Assessment and Plan: Loculated fluid collection in GB fossa on CT imaging. Initially, felt to be a biloma, however, there is no evidence of bile leak on ERCP or HIDA. Other etiologies include hematoma vs abscess. General surgery and GI consulted; await further recommendations. Input appreciated Continue general surgery recommendations. (2) Jaundice: Onset Date: ~05/2020 Code(s): R17 - Unspecified jaundice Status: Acute Assessment and Plan: Possibly related to papillary stenosis. GI following and appreciate recommendations. CMP shows improved LFTs and bili today Monitor liver function test. Await further rec from GI (3) CYNDI (acute kidney injury): Code(s): N17.9 - Acute kidney failure, unspecified Status: Acute Assessment and Plan: Cr 3.50 on arrival; 2.00 today; slow improvement with IV fluids. Likely prerenal as patient having decreased PO intake recently. Continue light IV fluid hydration until improved PO intake Monitor renal function. Avoid nephrotoxin agents. Renally dose medications. Monitor her urine output. Consider renal ultrasound for further eval if no improvement Consider Nephrology consultation if renal function does not improve. (4) Hypoglycemia: Code(s): E16.2 - Hypoglycemia, unspecified Status: Acute Assessment and Plan: Known diabetic. Likely secondary to poor p.o. intake of food. Diet now advanced per GI with improvement in BGL Hypoglycemia protocol. Hold home hypoglycemic agents at this time and resume when appropriate. (5) Leukocytosis: Qualifiers: Leukocytosis type: unspecified Qualified Code(s): D72.829 - Elevated white blood cell count, unspecified Code(s): D72.829 - Elevated white blood cell count, unspecified Status: Acute Assessment and Plan: Likely secondary to surgery and recent COVID infection. Imroved again today Monitor CBCD. (6) COVID-19: Code(s): U07.1 - COVID-19 Status: Acute Assessment and Plan: Continue droplet isolation. Continue supportive care. P.r.n. bronchodilators ordered. (7) CHF (congestive heart failure): Qualifiers: Heart failure type: unspecified Heart failure chronicity: chronic Qualified Code(s): I50.9 - Heart failure, unspecified Code(s): I50.9 - Heart failure, unspecified Status: Chronic Assessment and Plan: compensated. Monitor Is and Os, daily weights. Monitor closely with IV fluids (8) Diabetes: Code(s): E11.9 - Type 2 diabetes mellitus without complications Status: Chronic Assessment and Plan: BGL mid-upper 100s this morning; hypoglycemia protocol implemented. Home meds held at this moment Hold home medications for now Accuchecks ACHS when off NPO status, hypoglycemia protocol, correctional insulin, diabetic/low fat diet Subjective Date/time seen: 06/15/20 11:17 Interval history: Patient is a 85-year-old diabetic male with history of CHF, dementia, HTN, and HLD who is seen in follow up for a loculated fluid collection found on CT abd/pelvis, elevated LFTs and bilirubin, as well as, CYNDI. Patient has no complaints for me at the moment other than being thirsty. He is A&Ox3 but seems pleasantly confused at times. Denies subjective f/c/s, headaches, dizziness, lightheadedness, cp/palpitations, sob/cough, current n/v/d/c, current abd pain, dysuria, calf pain/s
[2020-06-15 12:00] VITALS: BP 124/68; PULSE 106; RESP 16; TEMP 36.6; O2SAT 96
[2020-06-15 12:11] LABS: Glucose Point of Care 227 (65-105)
[2020-06-15] MEDS: INSULIN ASPART (*BKC) 100 UNITS/ML SUB-Q ×2 (12:28→17:36)
[2020-06-15 16:00] VITALS: BP 111/64; PULSE 103; RESP 16; TEMP 36.3; O2SAT 98
--- NOTE | 2020-06-15 16:03 | PM.PNGS ---
Progress Note: A&P Assessment and Plan (1) Jaundice: Onset Date: ~05/2020 Code(s): R17 - Unspecified jaundice Status: Acute Assessment and Plan: This was the main reason for the patient's readmission. Liver function tests definitely improved overnight. Patient not complain of abdominal pain. 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 Sphincterotomy unable to be done. Plan is observation for now. (3) Hypertension: Code(s): I10 - Essential (primary) hypertension Status: Acute (4) Diabetes: Code(s): E11.9 - Type 2 diabetes mellitus without complications Status: Chronic (5) Dementia: Code(s): F03.90 - Unspecified dementia without behavioral disturbance Status: Acute (6) COVID-19: Code(s): U07.1 - COVID-19 Status: Acute Assessment and Plan: No real obvious it symptoms although the patient did a cough a little bit as I was leaving the room. (7) CYNDI (acute kidney injury): Code(s): N17.9 - Acute kidney failure, unspecified Status: Acute Additional Plan Advance diet (done) Observation see if liver functions come back toward normal on their own. If liver functions not improving consider referral to [facility] for tertiary care consultation with GI for ERCP and possible sphincterotomy with stenting. Appreciate GI input. Discussed patient's progress with his daughter both yesterday and today. Subjective Subjective Date/Time Seen: 06/15/20 16:03 Patient awake sitting in bed when I entered the room. Denies abdominal pain. Nurses report that he is not eating much and he states he does not have much appetite. He is drinking some fluids. Having to P fairly frequently (ease will ask nurse to do a bladder scan after next void). Review of Systems Review of Systems: All systems reviewed & are unremarkable except as noted in HPI and below ROS unobtainable: Yes unobtainable due to medical condition and unobtainable due to mental status Exam Const: General: cooperative, comfortable, no acute distress, alert, awake and ill appearing; No confusion Orientation/consciousness: oriented to person, oriented to place, oriented to time, patient oriented x3 and No confusion HENMT: Head: normal to inspection, normocephalic and atraumatic Ears: hearing grossly normal bilaterally General nose exam: Normal external nose present Mouth: Yes moist mucous membranes and Yes dry mucous membranes Eyes: General: appearance normal, both eyes and all related structures Pupils: Equal, round and reactive pupils present EOM: EOMs intact bilaterally Other: scleral icterus Neck: Neck: normal visual inspection and no lymphadenopathy Chest: Chest palpation & inspection: normal inspection of the chest Resp: Effort & Inspection: normal respiratory effort Auscultation: clear to auscultation bilaterally and diminished lung sounds Cardio: Jugular venous distension: no JVD Rate: regular rate Rhythm: regular rhythm GI: Inspection: normal to inspection, non-distended and incision (Laparoscopic incisions clean and dry with surgical glue in place.) Auscultation: normal bowel sounds Rectal Exam: deferred Other: soft, sl dist, mild TTP epigastrium Skin: General skin exam: jaundice Lesions: no lesions Rashes: no rashes Wounds: no wounds Extrem: General: normal exam except as noted, no calf tenderness and no edema Objective Data Vital Signs Vital Signs: Vital Signs - 24 hr 06/14/20 20:00 06/15/20 00:00 06/15/20 04:00 Temperature 36.5 C 36.7 C 36.8 C Pulse Rate 99 110 H 105 H Respiratory Rate 20 20 20 Blood Pressure 129/77 113/69 132/94 H Pulse Oximetry 100 100 100 06/15/20 08:00 06/15/20 12:00 Temperature 36.4 C L 36.6 C Pulse Rate 95 106 H Respiratory Rate 16 16 Blood Pressure 118/69 124/68 Pulse Oximet
[2020-06-15] MEDS: SODIUM CHLORIDE 0.9% IV 1,000 ML 75 ML IV CONT (17:37)
[2020-06-15 17:55] LABS: Glucose Point of Care 235 (65-105)
[2020-06-15 20:00] VITALS: BP 140/69; PULSE 110; PULSE 70; RESP 16; RESP 18; TEMP 36.9; O2SAT 91; O2SAT 98
[2020-06-15 20:04] LABS: Glucose Point of Care 224 (65-105)
[2020-06-16] VITALS: BP 131/78; PULSE 120; RESP 20; TEMP 36.7; O2SAT 98
[2020-06-16 04:00] VITALS: BP 136/71; PULSE 120; RESP 16; TEMP 36.9; O2SAT 98
[2020-06-16] MEDS: metroNIDAZOLE 500 MG/ISO 100ML 500 MG/100 ML BAG 100 MG IVPB ×4 (05:18→23:05)
[2020-06-16 06:15] LABS: Basophils Absolute Auto 0.2 K/mm3 (0.0-0.1); Basophils Percent Auto 1.3 % (0.2-1.2); Eosinophils Absolute Auto 1.4 K/mm3 (0-0.3); Eosinophils Percent Auto 10.4 % (0-4.4); Hematocrit 28.8 % (42.0-52.0); Hemoglobin 9.8 g/dL (14.0-18.0); Immature Granulocyte Absolute 0.26 K/mm3 (0.00-0.031); Immature Granulocyte Percent A 1.9 % (0-0.5); Lymphocytes Absolute Auto 1.59 K/mm3 (0.9-3.2); Lymphocytes Percent Auto 11.7 % (18.3-44.2); Mean Corpuscular Hemoglobin 29.3 pg (26-34); Mean Platelet Volume 9.4 fl (7.4-10.4); Monocytes Absolute Auto 0.9 K/mm3 (0.1-0.6); Monocytes Percent Auto 6.7 % (2.6-8.5); Neutrophils Absolute Auto 9.3 K/mm3 (1.3-6.7); Platelet Count Result 347 k/mm3 (150-375); Red Blood Count 3.35 M/mm3 (4.6-6.20); Red Cell Distribution Width 17.2 % (11.5-14.5); White Blood Count 13.6 K/mm3 (4.5-10.0)
[2020-06-16 06:37] LABS: Alanine Aminotransferase 118 U/L (4-50); Albumin Level 2.9 g/dL (3.5-5.1); Alkaline Phosphatase 1091 U/L (38-126); Anion Gap 14 mmol/L (8-16); Aspartate Amino Transferase 88 U/L (17-59); Bilirubin Direct 0.6 mg/dL (0-0.3); Bilirubin,Total 3.6 mg/dL (0.2-1.3); Blood Urea Nitrogen 23 mg/dL (9-20); Calcium 8.7 mg/dL (8.4-10.2); Carbon Dioxide 14 mmol/L (22-30); Chloride 113 mmol/L (98-107); Estimated CRCL calculation 25 ml/min; Estimated Glomerular Filt Rate 32; Glucose 175 mg/dL (75-110); Magnesium 1.4 mg/dL (1.6-2.3); Potassium 3.3 mmol/L (3.4-5.0); Sodium 141 mmol/L (137-145)
[2020-06-16 08:00] VITALS: BP 130/75; PULSE 100; RESP 18; TEMP 36.9; O2SAT 100
--- NOTE | 2020-06-16 08:05 | ECG_ITS ---
Measurements Intervals [place] Rate: 121 P: AR: 0 QRS: -33 QRSD: 83 T: 7 QT: 297 QTc: 422 Interpretive Statements SINUS TACHYCARDIA ATRIAL PREMATURE COMPLEXES LEFT AXIS DEVIATION LOW QRS VOLTAGE IN PRECORDIAL LEADS ANTEROSEPTAL INFARCT, AGE INDETERMINATE BORDERLINE T WAVE ABNORMALITY- INFERIOR LEADS BASELINE ARTIFACT- III, AVR, AVL, AVF, V3-V4, V6 ABNORMAL ECG Electronically Signed On 06-16-2020 14:08:22 [employer] by Ashu Gonzalez D.O.
[2020-06-16] MEDS: POTASSIUM CHLORIDE 20 MEQ PACKET (FOR LIQUID) 40 MEQ PO (08:27)
[2020-06-16] MEDS: SODIUM CHLORIDE 0.9% IV 1,000 ML 75 ML IV CONT (08:27)
[2020-06-16] MEDS: PANTOPRAZOLE SODIUM IV 40 MG VIAL IV PUSH (08:27)
[2020-06-16] MEDS: lisinopriL 20 MG TABLET PO (08:27)
[2020-06-16 08:38] LABS: Glucose Point of Care 180 (65-105)
--- NOTE | 2020-06-16 09:35 | WPDGIPROGNO ---
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 Likely this contributes to jaundice and elevated alkaline phosphatase. Plan is for observation currently asymptomatic. To treat this he would need sphincterotomy not available at our institution. Plan is for ultimate referral to [facility] for this if liver function tests fail to rib proved to normal. (2) Abnormal CT of the abdomen: Code(s): R93.5 - Abnormal findings on diagnostic imaging of other abdominal regions, including retroperitoneum Status: Acute Assessment and Plan: Fluid collection at liver high lists gallbladder fossa likely hematoma. No evidence of bile leak by recent examination. (3) Jaundice: Onset Date: ~05/2020 Code(s): R17 - Unspecified jaundice Status: Acute Assessment and Plan: Patient jaundiced on examination. This appears to be close to baseline given review of old labs. Suspect this is on the basis of papillary stenosis. Ultimately may benefit from referral to tertiary care center for sphincterotomy. (4) Dementia: Code(s): F03.90 - Unspecified dementia without behavioral disturbance Status: Acute Subjective Date/time seen: 06/16/20 09:35 Patient alert and comfortable this morning. His dementia limits understanding of condition. He offers no complaints denies abdominal pain. Review of Systems Review of Systems: ROS unobtainable: Yes unobtainable due to mental status Exam Narrative: Exam Narrative: Patient alert and comfortable. Vital signs are stable. Abdomen is soft nontender with no organomegaly. No masses evident. Objective Data Vital Signs Vital Signs: Vital Signs - 24 hr 06/15/20 12:00 06/15/20 16:00 06/15/20 20:00 Temperature 97.9 F 97.4 F L 98.5 F Pulse Rate 106 H 103 H 70 Respiratory Rate 16 16 16 Blood Pressure 124/68 111/64 140/69 Pulse Oximetry 96 98 91 06/16/20 00:00 06/16/20 04:00 06/16/20 08:00 Temperature 98.0 F 98.5 F 98.5 F Pulse Rate 120 H 120 H 100 Respiratory Rate 20 16 18 Blood Pressure 131/78 136/71 130/75 Pulse Oximetry 98 98 100 Intake/Output Intake/Output: Intake & Output 06/13/20 06/14/20 06/15/20 06/16/20 23:59 23:59 23:59 23:59 Intake Total 1615 2690 1260 1220 Output Total 1175 1050 1650 600 Balance 440 1640 -390 620 Meds/Results Medications: Active Medications Generic Name Dose Route Start Last Admin Trade Name Freq PRN Reason Stop Dose Admin Albuterol 2 puff 06/12/20 22:58 Albuterol Sulfate (*Sp) Aerosol 1 Puff INHALATION QIDRT PRN Shortness Of Breath Aspirin 81 mg 06/16/20 09:00 Aspirin 81 Mg Enteric Tablet PO DAILY ADILIA Dextrose 12.5 gm 06/12/20 22:59 06/13/20 21:15 Dextrose 50% 25 Gm/50 Ml Syringe IV PUSH 12.5 gm PRN PRN Administration Hypoglycemia Protocol Glucagon 1 mg 06/12/20 22:59 Glucagon For Inj 1 Mg Vial IM PRN PRN Hypoglycemia Protocol Glucose 15 gm 06/12/20 22:59 Glucose Oral Gel 15 Gm Of Glucse In 37.5 Gm Tube PO PRN PRN Hypoglycemia Protocol Metronidazole 500 mg in 100 mls @ 100 mls/hr 06/13/20 05:00 06/16/20 05:18 Flagyl 500 Mg/Iso Soln 100 Ml IVPB 100 mls/hr Q6H ADILIA Administration Dextrose 1,000 mls @ 100 mls/hr 06/12/20 22:59 Dextrose 5% 1,000 Ml IVPB PRN PRN Hypoglycemia Protocol Levofloxacin/Dextrose 500 mg in 100 mls @ 100 mls/hr 06/14/20 23:00 06/15/20 00:43 Levaquin 500 Mg/D5w 100 Ml IVPB Infused Q48H ADILIA Infusion Sodium Chloride 1,000 mls @ 75 mls/hr 06/15/20 16:00 06/16/20 08:27 Normal Saline Iv IV CONT 75 mls/hr .[id number] ADILIA Administration Insulin Aspart 2 - 5 units 06/15/20 12:00 06/16/20 08:19 Insulin Aspart (*Bkc) 100 Units/Ml SUB-Q Not Given TI
--- NOTE | 2020-06-16 10:42 | PM.PNGS ---
Progress Note: A&P Assessment and Plan (1) Jaundice: Onset Date: ~05/2020 Code(s): R17 - Unspecified jaundice Status: Acute Assessment and Plan: No evidence of bile leak on HIDA scan or with the ERCP. LFTs slowly trending down but still significantly elevated, total bilirubin 3.6 and alk phos 1091. ERCP on 06/13 with findings of significant papillary stenosis and unable to perform sphincterotomy. Depending on how the patient progresses, he may still require transfer to tertiary care facility for sphincterotomy. 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 Sphincterotomy unable to be done. Suspected to be contributing to elevated LFTs. Continue to trend labs. Plan per GI. (3) Hypertension: Code(s): I10 - Essential (primary) hypertension Status: Acute (4) Diabetes: Code(s): E11.9 - Type 2 diabetes mellitus without complications Status: Chronic (5) Dementia: Code(s): F03.90 - Unspecified dementia without behavioral disturbance Status: Acute (6) COVID-19: Code(s): U07.1 - COVID-19 Status: Acute Assessment and Plan: Tested positive in the longterm prior to this admission. Repeat COVID test pending. (7) CYNDI (acute kidney injury): Code(s): N17.9 - Acute kidney failure, unspecified Status: Acute Additional Plan Discussed the patient's plan of care with Dr. Espinosa. Subjective Subjective Date/Time Seen: 06/16/20 10:42 Post Op day: 12 (laparoscopic cholecystectomy) Patient reports: no new complaints and afebrile Interval history: This is a 85-year-old male who underwent laparoscopic cholecystectomy by Dr. Espinosa on 06/04/20 for chronic cholecystitis. Pathology showed chronic cholecystitis with cholelithiasis. He returned to the hospital and was admitted for elevated LFTs/jaundice. HIDA shows no bile leak. ERCP on 06/13/20 with findings of papillary stenosis, unable to perform sphincterotomy, no bile leak noted. Patient alert and awake on my exam today. ROS/history limited due to dementia. He has no significant complaints today. Denies abdominal pain or nausea. He reports decreased appetite. LFTs continue to trend down on his morning labs today. Review of Systems Review of Systems: All systems reviewed & are unremarkable except as noted in HPI and below Exam Const: General: comfortable, no acute distress, alert and awake Orientation/consciousness: patient oriented x3 and Other orientation findings (limited memory due to dementia) Resp: Effort & Inspection: normal respiratory effort Auscultation: clear to auscultation bilaterally Cardio: Rate: regular rate Rhythm: regular rhythm GI: Inspection: non-distended and incision (Laparoscopic incisions clean and dry with surgical glue in place.) GI Palp: Yes Soft to palpation, No Tenderness to palpation present (GI), No Guarding due to palpation present (GI) and No Rebound tenderness present Auscultation: normal bowel sounds Skin: General skin exam: jaundice Rashes: no rashes Neuro: General: moves all extremities and no focal motor deficits Extrem: General: no calf tenderness and no edema Psych: Mental Status: mental status grossly normal Affect: normal affect Insight: Fair insight present (Psych) and Limited insight present (Psych) (d/t dementia) Judgement: Limited judgement present (Psych) Objective Data Vital Signs Vital Signs: Vital Signs - 24 hr 06/15/20 12:00 06/15/20 16:00 06/15/20 20:00 Temperature 97.9 F 97.4 F L 98.5 F Pulse Rate 106 H 103 H 70 Respiratory Rate 16 16 16 Blood Pressure 124/68 111/64 140/69 Pulse Oximetry 96 98 91 06/16/20 00:00 06/16/20 04:00 06/16/20 08:00 Temperature 98.0 F 98.5 F 98.5 F Pulse Rate 120 H 120 H 100 Respiratory Rate 20 16 18 Blood Pressure 131/78 136/71 130/75 Pulse Oximetry 98 98 10
[2020-06-16] MEDS: ASPIRIN 81 MG ENTERIC TABLET PO (11:33)
[2020-06-16] MEDS: INSULIN ASPART (*BKC) 100 UNITS/ML SUB-Q ×2 (11:35→17:36)
[2020-06-16 11:51] LABS: Glucose Point of Care 283 (65-105)
[2020-06-16 12:00] VITALS: BP 119/74; PULSE 100; RESP 18; TEMP 36.7; O2SAT 99
--- NOTE | 2020-06-16 14:24 | PM.IMPN ---
Progress Note: A&P Assessment and Plan (1) Abnormal CT of the abdomen: Code(s): R93.5 - Abnormal findings on diagnostic imaging of other abdominal regions, including retroperitoneum Status: Acute Assessment and Plan: Loculated fluid collection in GB fossa on CT imaging. Initially, felt to be a biloma, however, there is no evidence of bile leak on ERCP or HIDA. Other etiologies include hematoma vs abscess. General surgery and GI consulted; await further recommendations. Input appreciated Continue general surgery recommendations. (2) Jaundice: Onset Date: ~05/2020 Code(s): R17 - Unspecified jaundice Status: Acute Assessment and Plan: Possibly related to papillary stenosis. GI following and appreciate recommendations. CMP shows improved LFTs and bili today Monitor liver function test. Await further rec from GI (3) CYNDI (acute kidney injury): Code(s): N17.9 - Acute kidney failure, unspecified Status: Acute Assessment and Plan: Cr 3.50 on arrival; 2.00 today - stable; slow improvement with IV fluids. Likely prerenal as patient having decreased PO intake recently. Renal US unremarkable Continue light IV fluid hydration until improved PO intake Monitor renal function. Avoid nephrotoxin agents. Renally dose medications. Monitor her urine output. Consider Nephrology consultation if renal function does not improve. (4) Hypoglycemia: Code(s): E16.2 - Hypoglycemia, unspecified Status: Resolved Assessment and Plan: Known diabetic. Likely secondary to poor p.o. intake of food. Diet now advanced per GI with improvement in BGL Hypoglycemia protocol. Hold home hypoglycemic agents at this time and resume when appropriate. (5) Leukocytosis: Qualifiers: Leukocytosis type: unspecified Qualified Code(s): D72.829 - Elevated white blood cell count, unspecified Code(s): D72.829 - Elevated white blood cell count, unspecified Status: Acute Assessment and Plan: Likely secondary to surgery and recent COVID infection. 13.6k. Monitor CBCD. (6) COVID-19: Code(s): U07.1 - COVID-19 Status: Acute Assessment and Plan: Continue droplet isolation. Continue supportive care. Patient retested overnight; pending results P.r.n. bronchodilators ordered. (7) CHF (congestive heart failure): Qualifiers: Heart failure type: unspecified Heart failure chronicity: chronic Qualified Code(s): I50.9 - Heart failure, unspecified Code(s): I50.9 - Heart failure, unspecified Status: Chronic Assessment and Plan: compensated. Monitor Is and Os, daily weights. Monitor closely with IV fluids (8) Diabetes: Code(s): E11.9 - Type 2 diabetes mellitus without complications Status: Chronic Assessment and Plan: BGL upper 100s-200s today; hypoglycemia protocol implemented. Home meds held at this moment Hold home medications for now Accuchecks ACHS when off NPO status, hypoglycemia protocol, correctional insulin, diabetic/low fat diet Subjective Date/time seen: 06/16/20 14:24 Interval history: Patient is a 85-year-old diabetic male with history of CHF, dementia, HTN, and HLD who is seen in follow up for a loculated fluid collection found on CT abd/pelvis, elevated LFTs and bilirubin, as well as, CYNDI. Patient has no complaints for me at the moment. He is A&Ox3 but seems pleasantly confused at times. Does not have an appetite today; eating only 2 bites from sandwich and drinking ensure. Denies subjective f/c/s, headaches, dizziness, lightheadedness, cp/palpitations, sob/co
[2020-06-16] MEDS: MAGNESIUM SULF 1 GM/D5W 100 ML 1 GM/100 ML BAG IVPB (15:58)
[2020-06-16 16:00] VITALS: BP 130/81; PULSE 110; RESP 20; TEMP 36.6; O2SAT 100
[2020-06-16 16:41] LABS: SARS-CoV-2 RNA PCR Negative
[2020-06-16 18:21] LABS: Glucose Point of Care 311 (65-105)
[2020-06-16 19:45] VITALS: BP 111/68; PULSE 120; RESP 18; TEMP 36.4; O2SAT 99
[2020-06-16] MEDS: levoFLOXacin 500 MG/D5W 100 ML 500 MG/100 ML BAG 100 MG IVPB (21:50)
[2020-06-17 00:37] LABS: Glucose Point of Care 304 (65-105)
[2020-06-17 02:00] VITALS: BP 132/52; PULSE 112; RESP 20; TEMP 36.6; O2SAT 98
[2020-06-17] MEDS: SODIUM CHLORIDE 0.9% IV 1,000 ML 75 ML IV CONT (02:47)
[2020-06-17] MEDS: metroNIDAZOLE 500 MG/ISO 100ML 500 MG/100 ML BAG 100 MG IVPB ×4 (05:03→22:14)
[2020-06-17 06:00] VITALS: BP 129/80; PULSE 106; RESP 20; TEMP 36.7; O2SAT 99
[2020-06-17 08:55] LABS: Glucose Point of Care 199 (65-105)
[2020-06-17] MEDS: PANTOPRAZOLE SODIUM IV 40 MG VIAL IV PUSH (09:04)
[2020-06-17] MEDS: ASPIRIN 81 MG ENTERIC TABLET PO (09:04)
[2020-06-17] MEDS: lisinopriL 20 MG TABLET PO (09:04)
[2020-06-17 09:08] LABS: Basophils Absolute Auto 0.2 K/mm3 (0.0-0.1); Eosinophils Percent Auto 25.3 % (0-4.4); Hematocrit 28.2 % (42.0-52.0); Hemoglobin 9.5 g/dL (14.0-18.0); Immature Granulocyte Absolute 0.27 K/mm3 (0.00-0.031); Immature Granulocyte Percent A 1.7 % (0-0.5); Lymphocytes Absolute Auto 1.45 K/mm3 (0.9-3.2); Lymphocytes Percent Auto 9.1 % (18.3-44.2); Mean Corpuscular HGB Conc 33.7 g/dl (32-36); Mean Corpuscular Hemoglobin 29.1 pg (26-34); Mean Corpuscular Volume 86.2 fl (80-100); Mean Platelet Volume 9.5 fl (7.4-10.4); Monocytes Absolute Auto 0.9 K/mm3 (0.1-0.6); Monocytes Percent Auto 5.7 % (2.6-8.5); Neutrophils Absolute Auto 9.2 K/mm3 (1.3-6.7); Neutrophils Percent Auto 57.2 % (45.5-73.1); Platelet Count Result 356 k/mm3 (150-375); Red Blood Count 3.27 M/mm3 (4.6-6.20)
[2020-06-17 09:23] LABS: Alanine Aminotransferase 84 U/L (4-50); Albumin Level 2.9 g/dL (3.5-5.1); Alkaline Phosphatase 1170 U/L (38-126); Anion Gap 11 mmol/L (8-16); Aspartate Amino Transferase 73 U/L (17-59); Bilirubin Direct 0.9 mg/dL (0-0.3); Bilirubin,Total 4.1 mg/dL (0.2-1.3); Blood Urea Nitrogen 27 mg/dL (9-20); Calcium 8.8 mg/dL (8.4-10.2); Carbon Dioxide 20 mmol/L (22-30); Chloride 109 mmol/L (98-107); Estimated CRCL calculation 31 ml/min; Estimated Glomerular Filt Rate 41; Glucose 213 mg/dL (75-110); Magnesium 1.6 mg/dL (1.6-2.3); Phosphorus 2.4 mg/dL (2.5-4.5); Potassium 3.1 mmol/L (3.4-5.0); Sodium 140 mmol/L (137-145)
--- NOTE | 2020-06-17 11:41 | WPDGIPROGNO ---
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 This limited cannulation of the common bile duct at time of ERCP. Likely the stenosis causes him to be jaundiced. Suspect this accounts for elevated bilirubin and alkaline phosphatase. Patient will likely need ERCP with needle knife sphincterotomy. This is not available at our institution. Plan is for follow-up with tertiary care such as [facility] for follow-up ERCP and further therapy of papillary stenosis. I discussed this with patient's daughter who wishes this to happen sooner rather than later. Patient is noted to be COVID positive in this may hinder referral. Patient appears to be at his baseline. LFTs very similar to discharge after cholecystectomy. Plan is for referral to therapeutic endoscopy so referral at [facility]. (2) Jaundice: Onset Date: ~05/2020 Code(s): R17 - Unspecified jaundice Status: Acute (3) COVID-19: Code(s): U07.1 - COVID-19 Status: Acute (4) Dementia: Code(s): F03.90 - Unspecified dementia without behavioral disturbance Status: Acute Subjective Date/time seen: 06/17/20 11:41 \ patient unchanged. His offers no specific complaints. with his dementia is uncertain how well he understands his condition. Review of Systems Review of Systems: All systems reviewed & are unremarkable except as noted in HPI and below Exam Narrative: Exam Narrative: Physical exam he patient remains jaundiced scleral icterus noted. Lungs reveal a few rhonchi. Abdomen is soft nontender with no organomegaly. No tenderness noted. Objective Data Vital Signs Vital Signs: Vital Signs - 24 hr 06/16/20 12:00 06/16/20 16:00 06/16/20 19:45 Temperature 98.1 F 97.8 F 97.5 F L Pulse Rate 100 110 H 120 H Respiratory Rate 18 20 18 Blood Pressure 119/74 130/81 111/68 Pulse Oximetry 99 100 99 06/17/20 02:00 06/17/20 06:00 Temperature 98 F 98.1 F Pulse Rate 112 H 106 H Respiratory Rate 20 20 Blood Pressure 132/52 L 129/80 Pulse Oximetry 98 99 Intake/Output Intake/Output: Intake & Output 1106/15/20 06/16/20 06/17/20 23:59 23:59 23:59 23:59 Intake Total 2690 1260 2890 1750 Output Total 1050 1650 1150 1200 Balance 1640 -390 1740 550 Meds/Results Medications: Active Medications Generic Name Dose Route Start Last Admin Trade Name Freq PRN Reason Stop Dose Admin Albuterol 2 puff 06/12/20 22:58 Albuterol Sulfate (*Sp) Aerosol 1 Puff INHALATION QIDRT PRN Shortness Of Breath Aspirin 81 mg 06/16/20 09:00 06/17/20 09:04 Aspirin 81 Mg Enteric Tablet PO 81 mg DAILY ADILIA Administration Dextrose 12.5 gm 06/12/20 22:59 06/13/20 21:15 Dextrose 50% 25 Gm/50 Ml Syringe IV PUSH 12.5 gm PRN PRN Administration Hypoglycemia Protocol Glucagon 1 mg 06/12/20 22:59 Glucagon For Inj 1 Mg Vial IM PRN PRN Hypoglycemia Protocol Glucose 15 gm 06/12/20 22:59 Glucose Oral Gel 15 Gm Of Glucse In 37.5 Gm Tube PO PRN PRN Hypoglycemia Protocol Metronidazole 500 mg in 100 mls @ 100 mls/hr 06/13/20 05:00 06/17/20 05:03 Flagyl 500 Mg/Iso Soln 100 Ml IVPB 100 mls/hr Q6H ADILIA Administration Dextrose 1,000 mls @ 100 mls/hr 06/12/20 22:59 Dextrose 5% 1,000 Ml IVPB PRN PRN Hypoglycemia Protocol Levofloxacin/Dextrose 500 mg in 100 mls @ 100 mls/hr 06/14/20 23:00 06/16/20 22:50 Levaquin 500 Mg/D5w 100 Ml IVPB Infused Q48H ADILIA Infusion Sodium Chloride 1,000 mls @ 75 mls/hr 06/15/20 16:00 06/17/20 02:47 Normal Saline Iv IV CONT 75 mls/hr .[id number] ADILIA Administration Insulin Aspart 2 - 5 units 06/15/20 12:00 06/17/20 09:13 Insulin Aspart (*Bkc) 100 Units/Ml SUB-Q Not Given TIDWM ADILIA Protocol Lisinop
[2020-06-17 12:16] LABS: Glucose Point of Care 229 (65-105)
[2020-06-17] MEDS: INSULIN ASPART (*BKC) 100 UNITS/ML SUB-Q (12:23)
--- NOTE | 2020-06-17 13:59 | PM.IMPN ---
Progress Note: A&P Assessment and Plan (1) Abnormal CT of the abdomen: Code(s): R93.5 - Abnormal findings on diagnostic imaging of other abdominal regions, including retroperitoneum Status: Acute Assessment and Plan: Loculated fluid collection in GB fossa on CT imaging. Initially, felt to be a biloma, however, there is no evidence of bile leak on ERCP or HIDA. Pt needs transfer to [facility] for ERCP and sphinerectomy. Surgery and GI rounding (2) Jaundice: Onset Date: ~05/2020 Code(s): R17 - Unspecified jaundice Status: Acute Assessment and Plan: Possibly related to papillary stenosis. GI following and appreciate recommendations. (3) CYNDI (acute kidney injury): Code(s): N17.9 - Acute kidney failure, unspecified Status: Acute Assessment and Plan: Cr 3.50 on arrival; 1.6 today (4) Hypoglycemia: Code(s): E16.2 - Hypoglycemia, unspecified Status: Resolved Assessment and Plan: Known diabetic. (5) Leukocytosis: Qualifiers: Leukocytosis type: unspecified Qualified Code(s): D72.829 - Elevated white blood cell count, unspecified Code(s): D72.829 - Elevated white blood cell count, unspecified Status: Acute Assessment and Plan: Likely secondary to surgery [place] [id number] COVID is negative pt is off isolation (6) COVID-19: Code(s): U07.1 - COVID-19 Status: Acute Assessment and Plan: COVID is negative (7) CHF (congestive heart failure): Qualifiers: Heart failure type: unspecified Heart failure chronicity: chronic Qualified Code(s): I50.9 - Heart failure, unspecified Code(s): I50.9 - Heart failure, unspecified Status: Chronic Assessment and Plan: compensated. (8) Diabetes: Code(s): E11.9 - Type 2 diabetes mellitus without complications Status: Chronic Assessment and Plan: DM diet started Subjective Date/time seen: 06/17/20 13:59 Interval history: 85-year-old diabetic male whom we have been asked to admit to the hospital by the general surgery service for a likely surgical complication of a bile leak. Here with covid. Patient is a 85-year-old diabetic male with history of CHF, dementia, HTN, and HLD who is seen in follow up for a loculated fluid collection found on CT abd/pelvis, elevated LFTs and bilirubin, as well as, CYNDI. Pt is improving gradually but remains jaundiced. DR Ruiz states he needs the procedure COVID is now negative. And LFTs are worsening. I will work on transfering the patient tomorrow to [facility] hopefully. Review of Systems Review of Systems: All systems reviewed & are unremarkable except as noted in HPI and below Exam Narrative: Exam Narrative: General: Patient resting HEENT: Normocephalic Skin: Jaundiced mildly Cardiovascular: Rate tachycardic. Respiratory: Non-labored breathing. On RA. Speaks in full sentences Abdomen: Soft, NT abdomen Extremities: No edema. Neuro: No focal neurological deficits. Speech is clear. Objective Data Vital Signs Vital Signs: Vital Signs - 24 hr 06/16/20 16:00 06/16/20 19:45 06/17/20 02:00 Temperature 36.6 C 36.4 C L 36.6 C Pulse Rate 110 H 120 H 112 H Respiratory Rate 20 18 20 Blood Pressure 130/81 111/68 132/52 L Pulse Oximetry 100 99 98 06/17/20 06:00 Temperature 36.7 C Pulse Rate 106 H Respiratory Rate 20 Blood Pressure 129/80 Pulse Oximetry 99 Intake/Output Intake/Output: Intake & Output 06/14/20 06/15/20 06/16/20 06/17/20 23:59 23:59 23:59 23:59 Intake Total 2690 1260 2890 1850 Output Total 1050 1650 1150 1200 Balance 1640 -390 1740 650 Meds/Results Me
[2020-06-17 14:00] VITALS: BP 116/74; PULSE 101; RESP 18; TEMP 36.8; O2SAT 97
[2020-06-17 17:59] LABS: Glucose Point of Care 177 (65-105)
[2020-06-17 22:00] VITALS: BP 127/75; PULSE 106; RESP 18; TEMP 36.7; O2SAT 99
[2020-06-17 22:23] LABS: Glucose Point of Care 213 (65-105)
[2020-06-18 05:54] VITALS: BP 130/68; PULSE 103; RESP 18; TEMP 36.7; O2SAT 100
[2020-06-18] MEDS: metroNIDAZOLE 500 MG/ISO 100ML 500 MG/100 ML BAG 100 MG IVPB ×4 (06:05→23:13)
[2020-06-18 08:00] VITALS: O2SAT 94
[2020-06-18 08:49] LABS: Glucose Point of Care 173 (65-105)
[2020-06-18] MEDS: ASPIRIN 81 MG ENTERIC TABLET PO (09:22)
[2020-06-18] MEDS: lisinopriL 20 MG TABLET PO (09:22)
[2020-06-18] MEDS: PANTOPRAZOLE SODIUM IV 40 MG VIAL IV PUSH (09:22)
--- NOTE | 2020-06-18 11:39 | WPDGIPROGNO ---
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 This likely accounts for patient's jaundice elevated bilirubin and alkaline phosphatase. ERCP with pre cut technique for sphincterotomy likely is going to be required. I would recommend referral to tertiary care for this. Therapeutic endoscopy service at [facility] which is suggested. Patient's labs are currently at is known baseline. They been this way since his cholecystectomy. (2) Jaundice: Onset Date: ~05/2020 Code(s): R17 - Unspecified jaundice Status: Acute (3) Abnormal CT of the abdomen: Code(s): R93.5 - Abnormal findings on diagnostic imaging of other abdominal regions, including retroperitoneum Status: Acute Assessment and Plan: Fluid collection at the hilum of the liver likely hematoma. No evidence of bile leak by recent exams. Patient remains asymptomatic. Observation of this is advised. Surgery has been following this as well. (4) Dementia: Code(s): F03.90 - Unspecified dementia without behavioral disturbance Status: Acute Subjective Date/time seen: 06/18/20 11:39 Patient comfortable at rest. He offers no specific complaints. He denies abdominal pain. Has been tolerating diet. Exam Narrative: Exam Narrative: Physical exam mild modest icterus is evident. Lungs are clear. Abdomen is soft nontender with no organomegaly. Objective Data Vital Signs Vital Signs: Vital Signs - 24 hr 06/17/20 14:00 06/17/20 22:00 06/18/20 05:54 Temperature 98.3 F 98.1 F 98.1 F Pulse Rate 101 H 106 H 103 H Respiratory Rate 18 18 18 Blood Pressure 116/74 127/75 130/68 Pulse Oximetry 97 99 100 Intake/Output Intake/Output: Intake & Output 06/15/20 06/16/20 06/17/20 06/18/20 23:59 23:59 23:59 23:59 Intake Total 1260 2890 2250 200 Output Total 1650 1150 1800 1150 Balance -390 1740 450 -950 Meds/Results Medications: Active Medications Generic Name Dose Route Start Last Admin Trade Name Freq PRN Reason Stop Dose Admin Albuterol 2 puff 06/12/20 22:58 Albuterol Sulfate (*Sp) Aerosol 1 Puff INHALATION QIDRT PRN Shortness Of Breath Aspirin 81 mg 06/16/20 09:00 06/18/20 09:22 Aspirin 81 Mg Enteric Tablet PO 81 mg DAILY ADILIA Administration Dextrose 12.5 gm 06/12/20 22:59 06/13/20 21:15 Dextrose 50% 25 Gm/50 Ml Syringe IV PUSH 12.5 gm PRN PRN Administration Hypoglycemia Protocol Glucagon 1 mg 06/12/20 22:59 Glucagon For Inj 1 Mg Vial IM PRN PRN Hypoglycemia Protocol Glucose 15 gm 06/12/20 22:59 Glucose Oral Gel 15 Gm Of Glucse In 37.5 Gm Tube PO PRN PRN Hypoglycemia Protocol Metronidazole 500 mg in 100 mls @ 100 mls/hr 06/13/20 05:00 06/18/20 07:05 Flagyl 500 Mg/Iso Soln 100 Ml IVPB Infused Q6H ADILIA Infusion Dextrose 1,000 mls @ 100 mls/hr 06/12/20 22:59 Dextrose 5% 1,000 Ml IVPB PRN PRN Hypoglycemia Protocol Levofloxacin/Dextrose 500 mg in 100 mls @ 100 mls/hr 06/14/20 23:00 06/16/20 22:50 Levaquin 500 Mg/D5w 100 Ml IVPB Infused Q48H ADILIA Infusion Sodium Chloride 1,000 mls @ 75 mls/hr 06/15/20 16:00 06/17/20 02:47 Normal Saline Iv IV CONT 75 mls/hr .[id number] ADILIA Administration Insulin Aspart 2 - 5 units 06/15/20 12:00 06/18/20 09:17 Insulin Aspart (*Bkc) 100 Units/Ml SUB-Q Not Given TIDWM ADILIA Protocol Lisinopril 20 mg 06/15/20 09:00 06/18/20 09:22 Lisinopril 20 Mg Tablet PO 20 mg DAILY ADILIA Administration Pantoprazole Sodium 40 mg 06/13/20 11:00 06/18/20 09:22 Pantoprazole Sodium Iv 40 Mg Vial IV PUSH 40 mg QAM ADILIA Administration Radiology Results: ITS Impressions Abdomen/Pelvis CT 06/12/20 21:39 IMPRESSION: 1. Loculated fluid co
[2020-06-18 12:50] LABS: Glucose Point of Care 195 (65-105)
--- NOTE | 2020-06-18 13:40 | PM.IMPN ---
Progress Note: A&P Assessment and Plan (1) Abnormal CT of the abdomen: Code(s): R93.5 - Abnormal findings on diagnostic imaging of other abdominal regions, including retroperitoneum Status: Acute Assessment and Plan: Loculated fluid collection in GB fossa on CT imaging. Initially, felt to be a biloma, however, there is no evidence of bile leak on ERCP or HIDA. Pt needs transfer to [facility] for ERCP and sphinerectomy. Surgery and GI rounding. Please pursue transfer to [facility] TOMORROW> (2) Jaundice: Onset Date: ~05/2020 Code(s): R17 - Unspecified jaundice Status: Acute Assessment and Plan: Possibly related to papillary stenosis. GI following and appreciate recommendations. (3) CYNDI (acute kidney injury): Code(s): N17.9 - Acute kidney failure, unspecified Status: Acute Assessment and Plan: Cr 3.50 on arrival; 1.6 today (4) Hypoglycemia: Code(s): E16.2 - Hypoglycemia, unspecified Status: Resolved Assessment and Plan: Known diabetic. (5) Leukocytosis: Qualifiers: Leukocytosis type: unspecified Qualified Code(s): D72.829 - Elevated white blood cell count, unspecified Code(s): D72.829 - Elevated white blood cell count, unspecified Status: Acute Assessment and Plan: Likely secondary to surgery [place] [id number] COVID is negative pt is off isolation (6) COVID-19: Code(s): U07.1 - COVID-19 Status: Acute Assessment and Plan: COVID is negative (7) CHF (congestive heart failure): Qualifiers: Heart failure type: unspecified Heart failure chronicity: chronic Qualified Code(s): I50.9 - Heart failure, unspecified Code(s): I50.9 - Heart failure, unspecified Status: Chronic Assessment and Plan: compensated. (8) Diabetes: Code(s): E11.9 - Type 2 diabetes mellitus without complications Status: Chronic Assessment and Plan: DM diet started Subjective Date/time seen: 06/18/20 13:40 Interval history: 85-year-old diabetic male whom we have been asked to admit to the hospital by the general surgery service for a likely surgical complication of a bile leak. Here with covid. Patient is a 85-year-old diabetic male with history of CHF, dementia, HTN, and HLD who is seen in follow up for a loculated fluid collection found on CT abd/pelvis, elevated LFTs and bilirubin, as well as, CYNDI. Pt is improving gradually but remains jaundiced. DR Ruiz states he needs the procedure COVID is now negative. And LFTs are worsening. I will work on transferring the patient tomorrow to [facility] hopefully. Called transfer line awaiting to talk to biliary service. No call back from them yet. Review of Systems Review of Systems: All systems reviewed & are unremarkable except as noted in HPI and below Exam Narrative: Exam Narrative: General: Patient resting HEENT: Normocephalic Skin: Jaundiced mildly Cardiovascular: Rate tachycardic. Respiratory: Non-labored breathing. On RA. Speaks in full sentences Abdomen: Soft, NT abdomen Extremities: No edema. Neuro: No focal neurological deficits. Speech is clear. Objective Data Vital Signs Vital Signs: Vital Signs - 24 hr 06/17/20 14:00 06/17/20 22:00 06/18/20 05:54 Temperature 36.8 C 36.7 C 36.7 C Pulse Rate 101 H 106 H 103 H Respiratory Rate 18 18 18 Blood Pressure 116/74 127/75 130/68 Pulse Oximetry 97 99 100 06/18/20 08:00 Temperature Pulse Rate Respiratory Rate Blood Pressure Pulse Oximetry 94 Intake/Output Intake/Output: Intake & Output 06/15/20 06/16/20 06/17/20 06/18/20 23:59 23:59 23:59 2
[2020-06-18 13:41] VITALS: BMI 25.9
[2020-06-18 14:00] VITALS: BP 132/82; PULSE 72; RESP 18; TEMP 36.3; O2SAT 97
[2020-06-18 17:41] LABS: Glucose Point of Care 228 (65-105)
[2020-06-18] MEDS: INSULIN ASPART (*BKC) 100 UNITS/ML SUB-Q (18:00)
[2020-06-18] MEDS: SODIUM CHLORIDE 0.9% IV 1,000 ML 75 ML IV CONT (20:07)
[2020-06-18 21:45] LABS: Mitochondrial (M2) Ab (IgG) <=20.0 U (<=20.0)
[2020-06-18 22:00] VITALS: BP 117/64; PULSE 112; RESP 18; TEMP 36.3; O2SAT 95
[2020-06-18] MEDS: levoFLOXacin 500 MG/D5W 100 ML 500 MG/100 ML BAG 100 MG IVPB (22:16)
[2020-06-18 22:24] LABS: Glucose Point of Care 198 (65-105)
[2020-06-19] MEDS: metroNIDAZOLE 500 MG/ISO 100ML 500 MG/100 ML BAG 100 MG IVPB ×3 (05:06→17:38)
[2020-06-19 06:00] VITALS: BP 190/79; PULSE 110; RESP 16; TEMP 36.4; O2SAT 95
[2020-06-19 07:06] LABS: Hematocrit 27.2 % (42.0-52.0); Hemoglobin 9.2 g/dL (14.0-18.0); Mean Corpuscular HGB Conc 33.8 g/dl (32-36); Mean Corpuscular Hemoglobin 29.2 pg (26-34); Mean Corpuscular Volume 86.3 fl (80-100); Mean Platelet Volume 9.4 fl (7.4-10.4); Platelet Count Result 363 k/mm3 (150-375); Red Blood Count 3.15 M/mm3 (4.6-6.20); Red Cell Distribution Width 17.9 % (11.5-14.5); White Blood Count 15.1 K/mm3 (4.5-10.0)
[2020-06-19 07:28] LABS: Alanine Aminotransferase 59 U/L (4-50); Albumin Level 2.8 g/dL (3.5-5.1); Alkaline Phosphatase 1275 U/L (38-126); Anion Gap 13 mmol/L (8-16); Aspartate Amino Transferase 71 U/L (17-59); Bilirubin,Total 2.9 mg/dL (0.2-1.3); Blood Urea Nitrogen 27 mg/dL (9-20); Calcium 8.5 mg/dL (8.4-10.2); Carbon Dioxide 19 mmol/L (22-30); Chloride 109 mmol/L (98-107); Estimated CRCL calculation 36 ml/min; Estimated Glomerular Filt Rate 48; Glucose 183 mg/dL (75-110); Potassium 2.7 mmol/L (3.4-5.0); Sodium 141 mmol/L (137-145)
[2020-06-19 08:00] VITALS: O2SAT 94
[2020-06-19 08:17] LABS: Glucose Point of Care 181 (65-105)
[2020-06-19] MEDS: lisinopriL 20 MG TABLET PO (09:06)
[2020-06-19] MEDS: PANTOPRAZOLE SODIUM IV 40 MG VIAL IV PUSH (09:06)
[2020-06-19] MEDS: ASPIRIN 81 MG ENTERIC TABLET PO (09:06)
--- NOTE | 2020-06-19 09:52 | PM.IMPN ---
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 Ruiz was unable to cannulate the ampulla due to severe papillary stenosis -contrast was injected which showed a normal dilated biliary tree with no evidence of stones within the bile duct or bile leak -bilirubin at its max was 7.4 and is now down to 2.9 today -alk-phos still significantly elevated at 1275 -AST and ALT markedly better from admission and has plateaued/stabilized -GI has requested transfer to a tertiary care facility. I have called [facility] who was unable to accept any transfers at this time. I have a call out to [facility] as well who was checking on bed availability -will add GGT, no history of bone abnormalities (2) Abnormal CT of the abdomen: Code(s): R93.5 - Abnormal findings on diagnostic imaging of other abdominal regions, including retroperitoneum Status: Acute Assessment and Plan: On admission CT showed Loculated fluid collection in GB fossa on CT imaging. Initially, felt to be a biloma, however, there is no evidence of bile leak on ERCP or HIDA. See above (3) Jaundice: Onset Date: ~05/2020 Code(s): R17 - Unspecified jaundice Status: Acute Assessment and Plan: Likely related to papillary stenosis. -Bili improving -Reports no itching (4) CYNDI (acute kidney injury): Code(s): N17.9 - Acute kidney failure, unspecified Status: Acute Assessment and Plan: Cr 3.50 on arrival; 1.4 today -Will stop fluids since bp is elevated and Cr close to normal -Cr 05/06/20 at PCP was 1.1 (5) Hypoglycemia: Code(s): E16.2 - Hypoglycemia, unspecified Status: Resolved Assessment and Plan: Noted on admission but better since -Last glucose 181 -Continue SSI -Will add A1c -on invokana, glipizide and metformin at home--all held (6) Leukocytosis: Qualifiers: Leukocytosis type: unspecified Qualified Code(s): D72.829 - Elevated white blood cell count, unspecified Code(s): D72.829 - Elevated white blood cell count, unspecified Status: Acute Assessment and Plan: Likely secondary sx -Check UA and CXR COVID is negative pt is off isolation. Was reportedly positive 06/02 at the sn[facility] but was negative on 05/31 and had surgery 06/04 -has been on Levaquin and Flagyl since ER admission (7) COVID-19: Code(s): U07.1 - COVID-19 Status: Acute Assessment and Plan: As above (8) CHF (congestive heart failure): Qualifiers: Heart failure type: unspecified Heart failure chronicity: chronic Qualified Code(s): I50.9 - Heart failure, unspecified Code(s): I50.9 - Heart failure, unspecified Status: Chronic Assessment and Plan: Euvolemic, fluids stopped (9) Diabetes: Code(s): E11.9 - Type 2 diabetes mellitus without complications Status: Chronic Assessment and Plan: Continue diabetic diet Time Spent With Patient Time with patient: 25 - 35 minutes Subjective Date/time seen: 06/19/20 09:52 Interval history: Pt is an 85-year-old male here for and abdominal pain after cholecystectomy. Patient was seen today and has no complaints. He denies pain, itchiness, chest pain, cough, nausea, vomiting, fevers, chills, or leg swelling. He says he is eating and drinking okay. No reports of diarrhea. Review of Systems Review of Systems: All systems reviewed & are unremarkable except as noted in HPI and below Exam Narrative: Exam Narrative: General: Jaundice appearing patient resting comfortably in bed in no acute distress HEENT: normocephalic Neck: supple Neuro: Alert and oriented to himself, hospital but did not know the president, year or which time he was in. CV:RRR on my exam with a syst
[2020-06-19 11:05] VITALS: BP 125/65; PULSE 105; O2SAT 100
[2020-06-19 11:49] LABS: Glucose Point of Care 204 (65-105)
[2020-06-19 11:56] LABS: Hemoglobin A1C 5.2 % (<5.7)
[2020-06-19] MEDS: INSULIN ASPART (*BKC) 100 UNITS/ML SUB-Q (11:57)
--- NOTE | 2020-06-19 12:17 | PM.DS ---
DS: Admitting Diagnosis Admitting Diagnosis Admitting Diagnosis: acute renal failure/biloma/jaundice DS: Summary Time Spent with Patient Time attestation: Total time spent providing and/or coordinating discharge services: DS: Data Data Completed and Pending Labs on day of discharge: Labs from last 24 hours 06/19/20 06/19/20 06/19/20 11:45 10:26 10:26 WBC RBC Hgb Hct MCV MCH MCHC RDW Plt Count MPV Sodium Potassium Chloride Carbon Dioxide Anion Gap BUN Creatinine Estim Creat Clear Calc Estimated GFR Glucose POC Capillary Glucose 204 H Hemoglobin A1c 5.2 Calcium Total Bilirubin GGT Pending AST ALT Alkaline Phosphatase Total Protein Albumin Mitochondria M2 IgG Ab 06/19/20 06/19/20 06/19/20 08:13 06:41 06:41 WBC 15.1 H RBC 3.15 L Hgb 9.2 L Hct 27.2 L MCV 86.3 MCH 29.2 MCHC 33.8 RDW 17.9 H Plt Count 363 MPV 9.4 Sodium 141 Potassium 2.7 L* Chloride 109 H Carbon Dioxide 19 L Anion Gap 13 BUN 27 H Creatinine 1.40 H Estim Creat Clear Calc 36 Estimated GFR 48 L Glucose 183 H POC Capillary Glucose 181 H Hemoglobin A1c Calcium 8.5 Total Bilirubin 2.9 H GGT AST 71 H ALT 59 H Alkaline Phosphatase 1275 H Total Protein 6.0 L Albumin 2.8 L Mitochondria M2 IgG Ab 06/18/20 06/18/20 06/18/20 20:06 17:36 12:44 WBC RBC Hgb Hct MCV MCH MCHC RDW Plt Count MPV Sodium Potassium Chloride Carbon Dioxide Anion Gap BUN Creatinine Estim Creat Clear Calc Estimated GFR Glucose POC Capillary Glucose 198 H 228 H 195 H Hemoglobin A1c Calcium Total Bilirubin GGT AST ALT Alkaline Phosphatase Total Protein Albumin Mitochondria M2 IgG Ab 06/13/20 10:26 WBC RBC Hgb Hct MCV MCH MCHC RDW Plt Count MPV Sodium Potassium Chloride Carbon Dioxide Anion Gap BUN Creatinine Estim Creat Clear Calc Estimated GFR Glucose POC Capillary Glucose Hemoglobin A1c Calcium Total Bilirubin GGT AST ALT Alkaline Phosphatase Total Protein Albumin Mitochondria M2 IgG Ab <=20.0 Discharge Plan Discharge Consulting providers: Omar Ruiz ; Lion Espinosa Patient Instructions: Heart Failure (DC), COVID-19 (Coronavirus Disease 2019) (GEN), COVID-19 and Chronic Health Conditions (GEN), COVID-19: Slow the Coronavirus Spread (GEN) Discharge Medications: No Action Invokana 100 mg tablet 100 mg PO DAILY RF: 0 quinapril 20 mg tablet 20 mg PO DAILY RF: 0 aspirin 81 mg tablet,delayed release (DR/EC) 81 mg PO DAILY RF: 0 Complete Multivitamin Tablet 1 tablet PO DAILY RF: 0 coenzyme Q10 10 mg capsule 10 mg PO DAILY RF: 0 esomeprazole magnesium [Nexium] 20 mg capsule,delayed release(DR/EC) 20 mg PO DAILY RF: 0 oxybutynin chloride 5 mg tablet 10 mg PO DAILY RF: 0 ezetimibe-simvastatin [Vytorin 10-20] 10-20 mg tablet 1 tablet PO DAILY RF: 0 glipizide 10 mg tablet 10 mg PO BID RF: 0 ascorbic acid (vitamin C) [Vitamin C] 1,000 mg Tablet 1 g PO DAILY RF: 0 acetaminophen 325 mg Tablet 325 mg PO TID PRN (Reason: Pain) RF: 0 cyanocobalamin (vitamin B-12) 500 mcg Tablet 500 mcg PO DAILY RF: 0 metformin [Glucophage] 1,000 mg Tablet 1,000 mg PO BID RF: 0 ergocalciferol (vitamin D2) [Vitamin D2] 1,250 mcg (50,000 unit) Capsule 1,250 mcg PO WEEKLY RF: 0 ibuprofen 600 mg tablet 600 mg PO Q6H PRN (Reason: pain) Qty: 14 RF: 0 Date of admission: 06/12/20 22:30 Primary Care Provider: Eris Jacome Admitting Provider: Harvey Lux Attending physician on admission: Augustin Rodriguez Condition: Stable Quality VTE Prophylaxis VTE prophylaxis: mechanical ordered
--- NOTE | 2020-06-19 12:17 | PM.TDS ---
Transfer Discharge Sum: Prov Provider Date of admission: 06/12/20 22:30 Primary care physician: Eris Jacome MD Admitting clinician: Harvey Lux MD Consults: 06/12/20 22:33 Consult to Physician Routine Comment: Consulting Provider: Omar Ruiz Reason for consultation: recent michael, jaundice Has provider been notified: Yes 06/13/20 Consult to Physician Routine Comment: Consulting Provider: Lion Espinosa train caller/MD group to consult: Dr. 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 Ruiz was unable to cannulate the ampulla due to severe papillary stenosis -contrast was injected which showed a normal dilated biliary tree with no evidence of stones within the bile duct or bile leak -bilirubin at its max was 7.4 and is now down to 2.9 today -alk-phos still significantly elevated at 1275 -AST and ALT markedly better from admission and has plateaued/stabilized -GI has requested transfer to a tertiary care facility. [facility] accepted the patient and I spoke with GI follow Dr. Rodríguez -GGT pending, no history of bone abnormalities (2) Abnormal CT of the abdomen: Code(s): R93.5 - Abnormal findings on diagnostic imaging of other abdominal regions, including retroperitoneum Status: Acute Assessment and Plan: On admission CT showed Loculated fluid collection in GB fossa on CT imaging. Initially, felt to be a biloma, however, there is no evidence of bile leak on ERCP or HIDA. See above (3) Jaundice: Onset Date: ~05/2020 Code(s): R17 - Unspecified jaundice Status: Acute Assessment and Plan: Likely related to papillary stenosis. -Bili improving -Reports no itching (4) CYNDI (acute kidney injury): Code(s): N17.9 - Acute kidney failure, unspecified Status: Acute Assessment and Plan: Cr 3.50 on arrival; 1.4 today -Will stop fluids since bp is elevated and Cr close to normal -Cr 05/06/20 at PCP was 1.1 (5) Hypoglycemia: Code(s): E16.2 - Hypoglycemia, unspecified Status: Resolved Assessment and Plan: Noted on admission but better since -Last glucose 180 -Continue SSI -A1c 5.2 -on invokana, glipizide and metformin at home--all held (6) Leukocytosis: Qualifiers: Leukocytosis type: unspecified Qualified Code(s): D72.829 - Elevated white blood cell count, unspecified Code(s): D72.829 - Elevated white blood cell count, unspecified Status: Acute Assessment and Plan: Likely secondary sx -Check UA and CXR COVID is negative pt is off isolation. [facility]31 and had surgery 06/04 -has been on Levaquin and Flagyl since ER admission (7) COVID-19: Code(s): U07.1 - COVID-19 Status: Acute Assessment and Plan: As above (8) CHF (congestive heart failure): Qualifiers: Heart failure type: unspecified Heart failure chronicity: chronic Qualified Code(s): I50.9 - Heart failure, unspecified Code(s): I50.9 - Heart failure, unspecified Status: Chronic Assessment and Plan: Euvolemic, fluids stopped (9) Diabetes: Code(s): E11.9 - Type 2 diabetes mellitus without complications Status: Chronic Assessment and Plan: Continue diabetic diet Transfer Discharge Sum: Med Medications Active and H
[2020-06-19 14:00] VITALS: BP 118/68; PULSE 102; RESP 16; TEMP 36.1; O2SAT 100
--- NOTE | 2020-06-19 16:18 | PC.NURSE ---
Pt's daughter, Romi, had requested pt be transferred to a [facility]. Romi called throughout the shift yesterday, regarding the pt being transferred and upset that it was not happening faster. We explained to her that it could be difficult to get placement, due to the COVID pandemic, the holiday, and the weekend. Today [facility] in [place] agreed to take the pt as a transfer. Pt's daughter was notified that we had an accepting facility. Pt's daughter decided to call the facility, with a list of things she would like done, and was trying to get to come up and visit, having already been told their is a no visitor policy in place and the pt has not been transferred there yet. The charge nurse for [facility] unit, called back stating the daughter had called them and stated the pt had been positive on 06-12-2020. When this nurse tried to call report, there was concern regarding the pt's COVID status and that they were going to have to see if they still had a room for the pt, on the unit they would now need to place him. Offered to fax the two negative test results the pt had at this hospital, on 05-31-2020, and 06-15-2020, however the facility stated they would like them included in the transfer packet rather then faxed. Awaiting return call from the facility for 3 hours. Have called 2x and been put on hold.
--- NOTE | 2020-06-19 17:30 | PC.NURSE ---
Pt is being discharged to [facility] in [place]. Estimated time for ambulance sheepskin pickler in 7:30 pm. Report has been called to receiving nurse Mi Hinds. Opportunities for questions provided. Pt is being discharged with IV.
[2020-06-19] MEDS: POTASSIUM CHLORIDE 20 MEQ TABLET 40 MEQ PO (17:37)
[2020-06-19 18:01] LABS: Glucose Point of Care 180 (65-105)
[2020-06-22 22:19] LABS: GGT 1724 U/L (3-70)
== END 2020-06-19 18:50 | disposition short-term general hospital (02) | DRG 445 ==
LOC: ANHED 22:47 → ANH3MEDSUR 06-13 03:49
PROVIDERS: Family Medicine; Internal Medicine Gastroenterology; Physician Assistant; Admitting Provider Family Medicine; Emergency Provider Emergency Medicine; PCP Family Medicine; Visit Provider Family Medicine
PROC: 0FJB8ZZ Inspection of Hepatobiliary Duct, Via Natural or Artificial Opening Endoscopic (ICD-10-PCS; CPT 43260; principal; 2020-06-13 12:00)
DX: K83.1 Obstruction of bile duct (principal); R17 Unspecified jaundice; N17.9 Acute kidney failure, unspecified; I50.32 Chronic diastolic (congestive) heart failure; Z20.828 Contact with and (suspected) exposure to other viral communicable diseases; I11.0 Hypertensive heart disease with heart failure; Z85.828 Personal history of other malignant neoplasm of skin; Z90.49 Acquired absence of other specified parts of digestive tract; E11.649 Type 2 diabetes mellitus with hypoglycemia without coma; F03.90 Unspecified dementia, unspecified severity, without behavioral disturbance, psychotic disturbance, mood disturbance, and anxiety; D72.829 Elevated white blood cell count, unspecified; Z86.19 Personal history of other infectious and parasitic diseases; E78.5 Hyperlipidemia, unspecified
CPT/HCPCS: 36415; 71045; 74176; 74329; 76775; 78226; 80048; 80053; 80069; 80074; 80076; 82948; 82977; 83036; 83520; 83690; 83735; 85025; 85027; 85610; 85730; 87040; 87635; 93005; 94640; 96361; 96374; 99285; A9270; A9537; C9113; C9803; J0131; J0330; J1815; J1956; J2370; J2704; J3475; J3480; J7030; J7120; U0003

== ENCOUNTER 2020-07-22 07:46 | Outpatient (CLI) | payer MEDICARE, SELFPAY ==
--- NOTE | ~2020-07-22 | PE_ITS ---
EXAMINATION: PET skull to mid thigh DATE: 07/22/2020 10:21 INDICATION: Cholangiocarcinoma TECHNIQUE: Blood glucose level was 107 mg/dL. 7.593 mCi of 18-fluorodeoxyglucose (18-FDG) was adminis tered i.v. Low dose computed tomography (CT) images were acquired from the base of the brain to the p roximal thighs for attenuation correction and anatomic localization. Positron emission tomography (PE T) images were acquired in the same distribution beginning 58 minutes after injection. Images includi ng fused PET/CT images were reconstructed in axial, coronal, and sagittal planes. Automated exposure control technique was employed. The dose-length product was 519.11mGy-cm. COMPARISON: CT dated 06/12/2020 FINDINGS: Head/neck: There is symmetric increased activity in the oral cavity, palatine tonsils, laryngeal muscles and ocu lar muscles without CT correlate, likely physiologic. No pathologically enlarged cervical lymphadenop athy or suspicious foci of increased FDG uptake in the visualized head or neck. Chest: Mild bibasilar atelectasis. Calcified nodules in the left lower lobe along with calcified mediastinal and right hilar lymph nodes consistent with old granulomatous disease. No pneumonia, suspicious pulm onary nodules, pulmonary edema or pleural effusion. Cardiomegaly. Atherosclerotic coronary artery tyree cification. Aortic valve and dense mitral annular calcifications. Thoracic aorta is normal in caliber . No pathologically enlarged thoracic lymphadenopathy. No suspicious FDG avid lesions in the thorax. Abdomen/pelvis/proximal thighs: Postoperative changes of prior cholecystectomy. There is a stent in the common bile duct along with s mall amount of pneumobilia the liver. Decrease in size of a small fluid collection at the gallbladder fossa without evident bilaterally con intervening hepatobiliary scan which would be most consistent with a residual postoperative seroma. Normal degree and heterogenous pattern of increased uptake thro ughout the liver without radiologic correlate or dominant FDG avid lesion. Physiologic renal accumula tion and excretion of FDG activity in the kidneys, bladder and along portions of ureters. Pancreas an d bilateral adrenal glands are normal. Splenic calcifications consistent with old granulomatous disea se. Moderate to large amount of uptake scattered throughout the bowels without radiologic correlate, also likely physiologic. There is mild colonic diverticulosis with a sigmoid predominance. There is no adjacent inflammatory change to suggest diverticulitis. Normal appendix. Minimal ascites in the up per abdomen. There is calcified atherosclerosis of the aorta and many of the other arteries. No other abnormal foci of increased FDG uptake or pathologically enlarged lymphadenopathy in the abdomen, pel vis or proximal thighs. Musculoskeletal: Severe lumbar spondylosis. No suspicious lytic, blastic or FDG avid bone lesions. IMPRESSION: 1. No FDG avid lesions suspicious for metastatic disease. Reviewed, dictated and finalized at location A. [employer]
[2020-07-22 08:29] LABS: Glucose Point of Care 107 (65-105)
== END 2020-07-22 07:47 | disposition home or self-care (01) ==
LOC: ANHIMG 07:49
PROVIDERS: PCP Family Medicine; Visit Provider Family Medicine
DX: C22.1 Intrahepatic bile duct carcinoma (principal)
CPT/HCPCS: 78815; A9552